=== PATIENT | female | born 1990 | race Caucasian/White ===

== ENCOUNTER 2018-11-12 15:24 | Inpatient (IN) ==
[2018-11-12] MEDS ORDERED: NS 1,000 ML IV ONE ×3 (15:36→20:42)
[2018-11-12] MEDS ORDERED: TYLENOL PO ONE (15:36)
--- NOTE | 2018-11-12 15:37 | PROVIDER DOCUMENTATION ---
HPI-General Adult - General Chief Complaint: Flu Symptoms Stated Complaint: HIGH HEART RATE,FLU LIKE SYMPTOMS,LOW BP,FEVER, Time Seen by Provider: 11/12/18 15:29 Source: patient Allergies/Adverse Reactions: Patient Allergies Allergy/AdvReac Type Severity Reaction Status Date / Time succinylcholine Allergy Severe coma Verified 11/12/18 15:52 [Succinylcholine] Home Medications: Home Medication List Medication Instructions Recorded Confirmed Last Taken Type Levothyroxine [Synthroid] 75 microgm PO DAILY 11/25/17 11/12/18 Unknown History - History of Present Illness -Gen Adult Nature of Presenting Problems: Pt. is 28 yof that presents with c/o fever, cough, and body aches. Pt. recently went to [facility] and was told to come to the ED. Pt. denies any other complaints. Location of Pain/Injury: reports: generalized. denies: none, head, face, mouth, neck, chest, upper extremity, hand(s), abdomen, back, pelvis, genitalia, lower extremity, feet, upper body, lower body, other Pain Radiation: reports: no radiation. denies: arm(s), back, buttocks, chest, epigastric, feet, groin, jaw, flank (L), legs (lower), LLQ, LUQ, neck, periumbilical, flank (R), RLQ, RUQ, shoulder(s), scapula, scrotal, sternal notch, suprapubic, legs (upper), urethral, vaginal, other Quality of Pain: reports: aching. denies: burning, pressure, tightness Severity: reports: moderate. denies: mild, severe Onset/Duration: reports: gradual, 2 days ago Timing: reports: still present. denies: improving, intermittent, getting worse Context/Activities at Onset: reports: none. denies: light activity, moderate activity, vigorous activity, recent emotional stress, recent physical stress, recent trauma history, possible bad food, cold exposure, eating, out of country travel, rest, sleep, sexual activity, other Modifying Factors: improves with: nothing Associated Symptoms: reports: cough, fatigue, fever/chills, malaise, muscle aches. denies: denies symptoms, anxiety, arm pain, back/neck pain, chest pain, constipation, diaphoresis, diarrhea, dizziness, EENT symptoms, genitourinary problems, headaches, heartburn, joint pain, loss of appetite, sinus congestion/drainage, nausea, rash, seizure, shortness of breath, sensory/motor l oss, pain with inspiration, swelling/mass in abdomen, syncope, vomiting, weakness, trouble walking, other Similar Symptoms Previously?: Yes Recently seen or treated by another doctor?: No Review of Systems - Adult - REVIEW OF SYSTEMS - ADULT Constitutional: reports: no symptoms reported Eyes: reports: no symptoms reported Ears, Nose, Mouth & Throat: reports: no symptoms reported Cardiovascular: reports: no symptoms reported Respiratory: reports: see HPI, cough. denies: pleurisy, wheezing Gastrointestinal: reports: no symptoms reported Genitourinary: reports: no symptoms reported Musculoskeletal: reports: see HPI, muscle aches. denies: back pain, joint pain, neck pain Integumentary: reports: no symptoms reported Neurological: reports: no symptoms reported Psychiatric: reports: no symptoms reported Past History - Adult - PAST MEDICAL HISTORY-ADULT Review of Records: reports: Old Records Reviewed, Nursing Assessment Review, Medications Reviewed, Social history reviewed & non-contributory. Major Childhood Illnesses: reports: denies history Cardiovascular: reports: denies history Respiratory: reports: denies history Gastrointestinal: reports: denies history Obstetrical/Gynecological: reports: denies history Genitourinary: reports: denies history Musculoskeletal: reports: denies history Neurological: reports: denies history Endocrine/Immune: reports: denies history Other Conditions: reports: denies history - PRIOR SURGERIES/PROCEDURES Surgical/Procedure History: reports: tonsillectomy - PRIOR HOSPITALIZATIONS Prior Hospitalizations: reports: for other non-related - IMMUNIZATION STATUS Childhood Immunizations: UTD Flu Vaccine: See Nurse Assessment - FAMILY HISTORY Family History: reviewed, not pertinent - SOCIAL HISTORY Smoking: cigarettes, greater than 1 pack/day Provider spent 3-5 mins advising pt. on dangers of tobacco.: Discussed manners to quit use, and f/u contacts for add'l counseling. Physical Exam-General - PHYSICAL EXAM-ADULT Initial Vital Signs Reviewed: Yes - CONSTITUTIONAL General Appearance: alert, mild distress. negative: anxious, obtunded, combative - EYES Eyes: PERRL/EOMI, pink conjunctivae - HEAD, EARS, NOSE, MOUTH & THROAT HENMT: normocephalic/atraumatic, moist mucous membranes - NECK Neck: non-tender, full range of motion, supple, normal inspection - RESPIRATORY Respiratory: lungs clear, normal breath sounds - CARDIOVASCULAR Cardiovascular: regular rate, rhythm, no edema, tachycardia. negative: extra beats, friction rub, irregularly irregular - GASTROINTESTINAL (ABDOMEN) Abdominal Exam: normal bowel sounds, non tender, soft - LYMPHATIC Lymphatic: no adenopathy - MUSCULOSKELETAL Back Exam: normal inspection, no CVA tenderness, no vertebral tenderness Extremity: normal range of motion, non-tender, normal gait, normal inspection Peripheral Pulses: radial (R): 2+, radial (L): 2+ - SKIN Integumentary: normal color, normal turgor, warm/dry - NEUROLOGIC Neurologic: grossly normal, no motor/sensory deficits - PSYCHIATRIC Psych/Mental Status: normal mood/affect, normal thought content, normal thought process, oriented x 3. negative: anxious, paranoid, tearful Progress - PLAN OF CARE/RESULTS Progress/Plan/Lab Results: Vital Signs - 8 hr 11/12/18 15:25 Temperature 102.0 F H Pulse Rate 133 H Respiratory Rate 20 Blood Pressure 87/50 O2 Sat by Pulse Oximetry 98 Orders Category Date Time Status ED: Urine Bedside ORDERED Care 11/12/18 15:29 Active Saline Loc NOW Care 11/12/18 15:29 Active BLOOD CULTURE [BLDCUL] Stat Lab 11/12/18 15:30 Uncollected CBC WITH ELECTRONIC DIFF [HEME] Stat Lab 11/12/18 15:29 Uncollected CK PROFILE [SP CHEM] Stat Lab 11/12/18 15:29 Uncollected COMPREHENSIVE METABOLIC PANEL [CHEM] Stat Lab 11/12/18 15:29 Uncollected LACTATE, PLASMA [CHEM] Stat Lab 11/12/18 15:30 Uncollected URINALYSIS W/POSS RFLX CULT [URINALYSIS] Stat Lab 11/12/18 15:29 Uncollected Laboratory Tests 11/12/18 11/12/18 11/12/18 15:39 15:55 15:55 WBC 8.82 RBC 5.19 Hgb 14.8 Hct 43.8 MCV 84.4 MCH 28.5 MCHC 33.8 RDW Std Deviation 14.5 Plt Count 232 MPV 11.9 H Immature Gran % (Auto) 0.2 Neut % (Auto) 78.2 H Lymph % (Auto) 13.[address] [place] % (Auto) 7.4 Eos % (Auto) 0.2 Baso % (Auto) 0.2 Immature Gran # (Auto) 0.02 Neut # (Auto) 6.89 H Lymph # (Auto) 1.22 [place] # (Auto) 0.65 H Eos # (Auto) 0.02 Baso # (Auto) 0.02 Sodium 135 L Potassium 3.7 Chloride 99 Carbon Dioxide 22 L Anion Gap 14 BUN 7 L Creatinine 0.4 L Estimated GFR/1.73 m2 > 60 BUN/Creatinine Ratio 18 Glucose 98 Calculated Osmolality 268 Calcium 8.5 L Total Bilirubin 0.69 AST 39 H ALT 46 H Alkaline Phosphatase 74 Creatine Kinase 26 Total Protein 6.8 Albumin 4.3 Globulin 2.5 Albumin/Globulin Ratio 1.7 Plasma Lactate 1.1 Urine Source Urine Color Urine Turbidity Urine pH Ur Specific [place] Urine Protein Ur Glucose (Stick) Ur Ketones (Stick) Urine Blood Urine Nitrite Urine Bilirubin Urobilinogen Dipstick Urine Leukocytes Urine WBC (Auto) Urine RBC (Auto) U Epithel Cells (Auto) Urine Bacteria (Auto) Urine Crystals Small Round Cells Urine Casts Urine Yeast-like Cells 11/12/18 16:41 WBC RBC Hgb Hct MCV MCH MCHC RDW Std Deviation Plt Count MPV Immature Gran % (Auto) Neut % (Auto) Lymph % (Auto) [place] % (Auto) Eos % (Auto) Baso % (Auto) Immature Gran # (Auto) Neut # (Auto) Lymph # (Auto) [place] # (Auto) Eos # (Auto) Baso # (Auto) Sodium Potassium Chloride Carbon Dioxide Anion Gap BUN Creatinine Estimated GFR/1.73 m2 BUN/Creatinine Ratio Glucose Calculated Osmolality Calcium Total Bilirubin AST ALT Alkaline Phosphatase Creatine Kinase Total Protein Albumin Globulin Albumin/Globulin Ratio Plasma Lactate Urine Source CLEAN CATCH Urine Color YELLOW Urine Turbidity CLEAR Urine pH 6.5 Ur Specific [place] 1.037 Urine Protein 70 A Ur Glucose (Stick) NEGATIVE Ur Ketones (Stick) >150 Urine Blood NEGATIVE Urine Nitrite NEGATIVE Urine Bilirubin SMALL A Urobilinogen Dipstick 4 A Urine Leukocytes NEGATIVE Urine WBC (Auto) <10 Urine RBC (Auto) <10 U Epithel Cells (Auto) <10 Urine Bacteria (Auto) 2+ Urine Crystals NONE SEEN Small Round Cells Not Reportable Urine Casts Not Reportable Urine Yeast-like Cells Not Reportable Discussed results and plan of care with patient. Patient agrees with plan and verbalizes understanding. Result Diagrams: 11/12/18 15:55 11/12/18 15:55 - XRAY 1 XRAY Study: Chest ([facility] - [address] , [address], [place] [address] [facility] - [address] , [place] [address] Department of Imaging Patient: JACKIE SLAUGHTERADM Date: 11/12/18#: [id number] : 1990ADM Status: REG ERAcct#: [id number] Age/Sex: 28/FRoom/Bed: Loc: ED Ordering Physician: Dianelys Lucas Family Physician: Fer Rivera Reason for Procedure: fever/cough Signed EXAM: CHEST-2 VIEWS - 11/12/2018 HISTORY: fever/cough TECHNIQUE: Chest two views COMPARISON: 10/11/2015 FINDINGS: Heart size is normal. There is consolidation at the left lingula consistent with pneumonia. The remainder of the lungs appear clear. There is no pleural effusion or pneumothorax identified. IMPRESSION: Pneumonia at left lingula. Electronically signed by Chidi Macdonald 11/12/2018 5:23 PM [id number] Interpreting Physician: Chidi Macdonald MD Dictated Date/Time: 11/12/18 172 cc: Dianelys Lucas; Fer Rivera) XRAY Interpretation: See note - CONSULTS/PCP/HOSPITALIST Notification #1 *Consult/PCP/Hospitalist*: Radha John Time Discussed: 18:40 Reason/Comments: Admission Consult Disposition: Will see in ED, Admit Departure - Departure Date of Disposition Decision: 11/12/18 Time of Disposition Decision: 18:27 DIAGNOSIS: Pneumonia Qualifiers: Pneumonia type: due to unspecified organism Laterality: right Lung location: unspecified part of lung Qualified Code(s): J18.9 - Pneumonia, unspecified organism Disposition: ADMITTED INPATIENT 09 Certified Medical Emergency: Emergent Condition: Stable Referrals and Follow-Ups: Fer Rivera [Primary Care Provider] - - Critical Care Note This patient required my direct & personal management of CC.: No Attestation - Physician/ TORRES Attestation Patient care was provided by Advanced Practice Provider:: Yes Advanced Practice Provider:: Dianelys Lucas Advanced Practice Provider documentation review:: The Mid-level provider documentation, treatment plan and medical decision making was reviewed by the physician who agrees with all treatment and medical decision making by the MLP. The physician spent face to face time with patient:: No Advanced Practice Provider documentation review:: Supervising physician onsite and consulted in the evaluation and care of this patient. The physician did not have a face to face encounter with the patient.
[2018-11-12] MEDS ORDERED: NS 1,000 ML ONE (15:45)
[2018-11-12 16:20] LABS: BASO# 0.02 X1000 (0.0-0.2); BASO% 0.2 % (0.0-0.8); EOS# 0.02 X1000 (0.0-0.7); EOS% 0.2 % (0.0-10.0); HEMATOCRIT 43.8 % (37.0-47.0); HEMOGLOBIN 14.8 g/dL (12.0-16.0); IMM GRAN# 0.02 X1000 (0.0-0.04); IMM GRAN% 0.2 % (0.0-0.5); LYMPH# 1.22 X1000 (1.2-3.4); LYMPH% 13.8 % (20.5-51.1); MCH 28.5 PG (27-31); MCHC 33.8 g/dL (33-37); MCV 84.4 FL (81-99); MONO# 0.65 X1000 (0.11-0.59); MONO% 7.4 % (1.7-9.3); MPV 11.9 FL (7.4-10.4); NEUT# 6.89 X1000 (1.4-6.5); NEUT% 78.2 % (42.2-75.2); PLT 232 X1000 (130-400); RBC 5.19 XMIL (4.2-5.4); RDW 14.5 % (11.5-14.5); WBC 8.82 X1000 (4.8-10.8)
[2018-11-12 16:31] LABS: AGAP 14; ALB/GLOB RATIO 1.7; ALBUMIN 4.3 g/dL (3.5-5.0); ALKALINE PHOSPHATASE 74 U/L (32-104); BUN 7 mg/dL (8-22); CALCIUM 8.5 mg/dL (8.8-10.2); CHLORIDE 99 mmol/L (98-107); CK PROFILE 26 U/L (24-173); COSMO 268; CREATININE 0.4 mg/dL (0.5-0.9); ESTIMATED GFR > 60; GLUCOSE 98 mg/dL (70-104); GOT 39 U/L (10-30); GPT 46 U/L (10-36); POTASSIUM 3.7 mmol/L (3.5-5.1); SODIUM 135 mmol/L (136-145); TCO2 22 mmol/L (25-35); TOTAL BILIRUBIN 0.69 mg/dL (0.20-1.00); TOTAL PROTEIN 6.8 g/dL (6.3-8.3)
[2018-11-12 17:13] LABS: URINE SOURCE CLEAN CATCH
[2018-11-12 17:19] LABS: BILIRUBIN URINE SMALL (NEGATIVE); COLOR YELLOW; GLUCOSE URINE NEGATIVE (NEGATIVE); KETONE URINE >150 mg/dL (NEGATIVE); TURBIDITY URINE CLEAR (CLEAR)
[2018-11-12 17:20] LABS: BLOOD URINE NEGATIVE (NEGATIVE); LEUKOCYTES URINE NEGATIVE (NEGATIVE); NITRITE URINE NEGATIVE (NEGATIVE); PH URINE 6.5; PROTEIN URINE 70 mg/dL (NEGATIVE); SP GRAVITY URINE 1.037; UROBILINOGEN URINE 4 mg/dL (NORMAL)
--- NOTE | 2018-11-12 17:26 | Diag Imaging Result Doc PS360 ---
EXAM: CHEST-2 VIEWS - 11/12/2018 HISTORY: fever/cough TECHNIQUE: Chest two views COMPARISON: 10/11/2015 FINDINGS: Heart size is normal. There is consolidation at the left lingula consistent with pneumonia. The remainder of the lungs appear clear. There is no pleural effusion or pneumothorax identified. IMPRESSION: Pneumonia at left lingula. Electronically signed by Chidi Macdonald 11/12/2018 5:23 PM
[2018-11-12 17:37] LABS: UR EPITHELIAL CELLS <10 /HPF (<10); URINE BACTERIA 2+ /HPF; URINE CRYSTALS NONE SEEN; URINE RBC <10 /HPF (<10); URINE WBC <10 /HPF (<10)
[2018-11-12] MEDS ORDERED: ROCEPHIN 1 GM in NS 50 ML IV ONE (17:37)
[2018-11-12] MEDS ORDERED: ZITHROMAX 500 MG/NS 500 MG/250 ML IVPB IV ONE (17:37)
[2018-11-12] MEDS ORDERED: MOTRIN PO ONE (17:41)
[2018-11-12] MEDS ORDERED: DUONEB (A & A) INH ONE (17:41)
[2018-11-12 20:18] LABS: FREE T4 0.99 ng/dL (0.93-1.70); TSH 0.34 uIUmL (0.27-4.20)
--- NOTE | 2018-11-12 20:18 | HISTORY AND PHYSICAL ---
ADDENDUM: Ms. Marilu Mandel is a 28-year-old woman with past medical history of Darline thyroiditis who a week ago had a bout of what she described as a stomach bug, which manifested as persistent nausea, vomiting and diarrhea. She said this only lasted 24 hours, and she got back to her usual state of health and went about her daily activities without any hindrance. Today she comes in complaining of generalized weakness and body aches and cough and went to [facility] in [place] where they did her blood work and found that everything was within normal limits, but they did notice her blood pressure was in the 80s, her heart rate was in the 120s and she had a fever of 104 and referred her to the ER. The patient denies any neck stiffness, genitourinary complaints, GI complaints. Only complains of a cough with minimal shortness of breath. LAB WORK: Reviewed by me showed CBC was essentially normal, but she had 78% neutrophils. Chemistry showed mildly elevated AST and ALT 39 and 46, a sodium of 135. Lactate was normal. Urinalysis shows a lot of ketones, small protein, 2+ bacteria. IMAGING: Chest film to me showed small inspiratory effort. I cannot see any overt infiltrate. PHYSICAL EXAMINATION: VITAL SIGNS: Blood pressure was 85/60. Heart rate was 112. Temperature at current of 97.8, 94% on room air. RESPIRATORY: Exam was only notable for a few questionable basal crepitations. ABDOMINAL EXAM: Normal. CARDIOVASCULAR EXAM: Essentially normal. EXTREMITIES: Good volume pulse. SKIN: No good skin turgor. IMPRESSION: This patient may have a respiratory viral illness. Flu swab was negative at the urgent care and may want to consider other viral illnesses like metapneumovirus and rhinovirus. For now, we will treat patient symptomatically. I will order noncontrast CT to rule out possibility of pneumonia based on her presentation and her chest findings. If positive, we will treat with antibiotics. If negative, we will continue with symptomatic treatment and because of her history of Darline's thyroiditis, one also needs to consider the possibility of hashitoxicosis. I will get a TSH and a free T4. The patient did tell me that she did feel extremely hot the last few days. Denies any tremors. cc: Scarlet John MD
--- NOTE | 2018-11-12 20:34 | Diag Imaging Result Doc PS360 ---
EXAM: CT THORAX W/O CONTRAST - 11/12/2018 HISTORY: Fever,cough,hypotension,poss. PNA TECHNIQUE: CT thorax without contrast. No contrast administered per request of the referring provider. COMPARISON: 11/12/2018 chest radiographs FINDINGS: There is consolidation at the left upper lobe, primarily at the lingular segment, consistent with pneumonia. There are left lower lobe calcified granuloma and calcified left hilar lymph nodes from old granulomatous disease. The remainder of the lungs appear clear. There is no pleural effusion or pneumothorax identified. There are mildly enlarged noncalcified mediastinal lymph nodes which may be reactive. Included sections of upper abdomen show postsurgical changes of gastric bypass. The visualized spleen is mildly prominent. IMPRESSION: Left upper lobe pneumonia. This exam was performed using automated exposure control, adjustment of mA or kV according to patient size, and/or use of iterative reconstruction technique. Electronically signed by Chidi Macdonald 11/12/2018 8:32 PM
[2018-11-12] MEDS: DUONEB (A & A) INH SCH (22:33)
[2018-11-12] MEDS ORDERED: HALL'S COUGH LOZENGE MT PRN (22:45)
[2018-11-12] MEDS ORDERED: TESSALON PO PRN (22:45)
[2018-11-13] MEDS: ZITHROMAX 500 MG/NS 500 MG/250 ML IVPB IV SCH ×2 (00:11→22:07)
[2018-11-13] MEDS: ZOFRAN IV PRN ×2 (03:27→18:43)
[2018-11-13] MEDS: DUONEB (A & A) INH SCH ×4 (03:29→21:06)
[2018-11-13] MEDS: TYLENOL PO PRN ×4 (04:05→22:06)
--- NOTE | 2018-11-13 04:34 | EKG Report ---
Test Performed on : 11/13/2018 03:58:52 AM Test Reason : tachycardia/pain Blood Pressure : / mmHG Vent. Rate : 112 BPM Atrial Rate : 112 BPM P-R Int : 170 ms QRS Dur : 084 ms QT Int : 326 ms P-R-T Axes : 038 052 016 degrees QTc Int : 444 ms Sinus tachycardia. Otherwise normal ECG When compared with ECG of 25-JUL-2012 19:25, Vent. rate has increased BY 43 BPM QRS axis shifted left Non-specific change in ST segment in Anterior leads Nonspecific T wave abnormality now evident in Inferior leads Nonspecific T wave abnormality now evident in Anterior leads T wave inversion no longer evident in Lateral leads Unconfirmed Result
[2018-11-13 05:20] LABS: BASO# 0.01 X1000 (0.0-0.2); BASO% 0.2 % (0.0-0.8); EOS# 0.03 X1000 (0.0-0.7); EOS% 0.5 % (0.0-10.0); HEMATOCRIT 36.7 % (37.0-47.0); HEMOGLOBIN 12.3 g/dL (12.0-16.0); IMM GRAN# 0.02 X1000 (0.0-0.04); IMM GRAN% 0.3 % (0.0-0.5); LYMPH% 18.5 % (20.5-51.1); MCH 28.6 PG (27-31); MCHC 33.5 g/dL (33-37); MCV 85.3 FL (81-99); MONO# 0.79 X1000 (0.11-0.59); MONO% 12.2 % (1.7-9.3); MPV 11.2 FL (7.4-10.4); NEUT# 4.42 X1000 (1.4-6.5); NEUT% 68.3 % (42.2-75.2); PLT 183 X1000 (130-400); RDW 14.7 % (11.5-14.5); WBC 6.47 X1000 (4.8-10.8)
[2018-11-13 05:43] LABS: AGAP 11; ALB/GLOB RATIO 1.6; ALBUMIN 3.2 g/dL (3.5-5.0); ALKALINE PHOSPHATASE 60 U/L (32-104); BUN 5 mg/dL (8-22); CALCIUM 7.6 mg/dL (8.8-10.2); CHLORIDE 109 mmol/L (98-107); COSMO 276; CREATININE 0.4 mg/dL (0.5-0.9); ESTIMATED GFR > 60; GLUCOSE 112 mg/dL (70-104); GOT 26 U/L (10-30); GPT 34 U/L (10-36); POTASSIUM 3.3 mmol/L (3.5-5.1); SODIUM 139 mmol/L (136-145); TCO2 19 mmol/L (25-35); TOTAL BILIRUBIN 0.32 mg/dL (0.20-1.00); TOTAL PROTEIN 5.2 g/dL (6.3-8.3)
[2018-11-13] MEDS: NS 1,000 ML IV SCH ×2 (07:36→11:41)
--- NOTE | 2018-11-13 09:58 | HISTORY AND PHYSICAL ---
PRIMARY CARE PROVIDER: Dr. Fer Rivera. DATE AND TIME: 11/12/2018 at 1945. CHIEF COMPLAINT: Flu symptoms. HISTORY OF PRESENT ILLNESS: Ms. Mandel is a 28-year-old female with a past medical history of Darline's thyroiditis. She states that approximately 1 week ago that she did have a 24 hour stomach virus where she had nausea, vomiting and diarrhea. The patient states that this has since resolved. Other than having some occasional nausea, her vomiting and diarrhea have resolved. The patient states that she does frequently have nausea. She states that on Friday she did go outside to mow her grass. She states that later on that evening after she came in she began to not feel well, and since Friday, which is approximately 3 days ago she has had complaints of rhinorrhea, sinus drainage, dry cough, fever, body aches, and chills. The patient states that she is not short of breath and can exert herself without becoming short of breath. She states at times she feels as though she "can't catch her breath". Though, she denies any dizziness or feeling lightheaded. She does report that she has a headache. She denies any chest pain, abdominal pain, vomiting, or diarrhea. She denies any dysuria or urinary frequency. She also denies any pain, numbness, tingling or swelling in her extremities. She reports that earlier today she was seen in Urgent Care, and due to her vital signs being abnormal with her temperature being elevated and blood pressure being low with systolics in the 80s, she was referred to come to the ER for further evaluation. They did do an influenza screen which was negative there. Upon arrival here in the ER, initial vital signs were temperature 102 degrees, heart rate 133, respirations 20, blood pressure was 87/50 with a MAP of 63. Oxygen saturation was 98% on room air. Her fever was treated with Tylenol and Motrin. She was given 2 L normal saline bolus. Chest x-ray did show pneumonia at the left lingula. Given these findings, I did go ahead and initiate antibiotic treatment with Rocephin and azithromycin. After the 2 L normal saline bolus, the patient is still borderline hypotensive with blood pressures that are still in the 80s systolically. Her maps are in the low-to-mid 60s range. She still is slightly tachycardic as well with heart rate around 115. She was placed for admission for observation for treatment of her pneumonia. We also did perform thyroid studies which were within normal limits. Her influenza screen was negative, and we did do a CT noncontrast which did show a left upper lobe pneumonia. REVIEW OF SYSTEMS: A 14 point review of systems was conducted with the patient. All were negative except for pertinent positives mentioned above in HPI. PAST MEDICAL HISTORY: 1. Darline's thyroiditis. 2. History of a concussion at age 8 which did reportedly caused her to have some temporary paralysis after being struck in the head with a softball. PAST SURGICAL HISTORY: 1. section. 2. Tonsillectomy. 3. Gastric sleeve. SOCIAL HISTORY: The patient is a former smoker. She did smoke 1/3 pack per day for 10 years, though quit 5 years ago. She only reports occasional alcohol use. There is no known illicit drug use. FAMILY HISTORY: Positive for her father having history of alcoholism and did develop dementia, and secondary to complications of this. There is no other reported known family medical history. ALLERGIES: The patient reports allergies to succinylcholine. She does state there is a history of malignant hypertension as well. HOME MEDICATIONS: Levothyroxine 88 mcg p.o. daily. DIAGNOSTIC DATA/LABORATORY RESULTS: White blood cell count is 8820, hemoglobin 14.8, hematocrit 43.8, and platelet count is 232,000. Sodium 135, potassium 3.7, chloride 99, serum bicarb is 22, BUN 7, creatinine 0.4, glucose 98, calcium 8.5, total bilirubin is 0.69, AST is 39, ALT is 46, alkaline phosphatase 74. TSH is 0.34, free T4 is 0.99. Urinalysis was obtained via clean catch, was positive for protein, small amount of bilirubin, greater than 150 ketones, and 2+ bacteria though was negative for blood, nitrites, leukocytes, or white blood cells. Influenza screen was negative. Chest x-ray showed pneumonia at the left lingula. CT chest noncontrast showed left upper lobe pneumonia. Pending diagnostic studies at this time are blood culture, sputum culture, and urine culture. PHYSICAL EXAMINATION: VITAL SIGNS: Temperature 98.7 degrees, heart rate 115, respirations 20, and blood pressure is 91/56 with a MAP of 74. Oxygen saturation is 98%. GENERAL: Ms. Mandel is a pleasant 28-year-old female. She was resting on the ER stretcher. She was in no acute distress. She was awake, alert, and able to answer all questions appropriately. HEENT: Head is atraumatic, normocephalic. Pupils are equal, round, reactive to light, and were 3 mm bilaterally and brisk. Oral mucosa was moist. Oropharynx was clear except for there was some slight drainage noted to the posterior pharynx. NECK: Supple. Trachea midline. CARDIOVASCULAR: Patient has S1-S2 present. No murmurs, gallops, or rubs appreciated with a slightly tachycardic rate and regular rhythm. PULMONARY: Patient has symmetrical chest expansion bilaterally. Lung sounds are clear to auscultation in bilateral full martinez. ABDOMEN: Soft, non distended, and nontender. Bowel sounds are present in all 4 quadrants, and were normoactive. EXTREMITIES: No cyanosis or edema noted. Pulse, motor, and sensory were intact in all extremities. Radial and pedal pulses were 2+ bilaterally. INTEGUMENTARY: The patient's skin is pink, warm, and dry. NEUROLOGICAL: Patient is alert and oriented to person, place, time, and situation. There are no focal neurological deficits noted. ASSESSMENT AND PLAN: 1. Community-acquired left upper lobe pneumonia. The patient has been placed with antibiotic coverage of Rocephin and azithromycin. Blood cultures and sputum culture have been ordered. We will continue with aggressive pulmonary toilet, incentive spirometry, DuoNeb treatments, and something as needed for cough. 2. Mild hypotension, this could possibly be secondary to mild fluid volume depletion. The patient did report that though she has been eating, she has not been drinking a lot of fluids over the past couple of days. She stated it was less than her normal amount. Though with 2 L normal saline bolus, her blood pressures have improved. She was in the 80s systolically, and now she is in the 90s. We will continue with normal saline at 125 mL/h. We will continue to monitor this closely with q.4 hours vital signs. She will be placed on continuous cardiac telemetry. 3. Fluid volume depletion. We will continue with IV hydration as mentioned above in #2. 4. Darline's thyroiditis. TSH and free T4 are within normal limits. We will continue her regularly prescribed Synthroid of 88 mcg p.o. daily. She has been placed on the medical floor with telemetry. She will have vital signs q.4 hours. We will do strict intake and output. I would like to add that her bedside urine in he ER was negative. We will repeat a CBC, BMP in the morning. Further orders and recommendations pending hospital course, diagnostic studies, and physician evaluation. Dictated by DOMI Lehman for Scarlet John MD cc: Scarlet John MD MTDD
[2018-11-13] MEDS ORDERED: ROCEPHIN ONE (10:36)
[2018-11-13] MEDS ORDERED: SYNTHROID PO ONE (11:11)
[2018-11-13] MEDS: ULTRAM PO PRN ×2 (11:40→18:09)
[2018-11-13] MEDS ORDERED: ROCEPHIN 1 GM in NS 50 ML IV SCH (18:00)
[2018-11-13] MEDS ORDERED: MORPHINE IV ONE (18:47)
[2018-11-13] MEDS: MOTRIN PO PRN (18:58)
--- NOTE | 2018-11-13 19:29 | PROGRESS NOTE ---
DATE: 11/13/2018 SUBJECTIVE: The patient denies having any acute complaints this morning, and is comfortably sitting in her bed. OBJECTIVE: Vital Signs: Temperature 98.7 degrees, pulse 103 per minute, respiratory rate 18 per minute. Blood pressure 107/57, pulse oximetry 100% on room air. General: Patient is alert and oriented x3. She does not appear to be in any acute distress. Cardiovascular System: First and second heart sounds are audible without any murmurs or gallops. Respiratory System: Bilateral lung air entry is good without any rales or rhonchi. Gastrointestinal System: Abdomen is soft and nondistended. Normal bowel sounds are present. Musculoskeletal System: No deformities are present. DIAGNOSTIC DATA: CBC is within normal limits and comprehensive metabolic panel showed potassium level of 3.3. Rest of the comprehensive metabolic panel is nondiagnostic. Cardiac enzymes were found to be negative and chest x-ray done yesterday at the emergency room showed pneumonia at left lingula. CT chest was also obtained that confirmed left upper lobe pneumonia. IMPRESSION: Left upper lobe pneumonia in this 28-year-old female who also has history of hypothyroidism. PLAN: The patient will be continued on ceftriaxone along with azithromycin for community-acquired pneumonia. I have restarted her home medication of levothyroxine 88 mcg orally once daily. She can probably be able to be discharged home in the next 1 to 2 days if remains stable. cc: Chema Valencia MD
[2018-11-14] MEDS: DUONEB (A & A) INH SCH ×4 (03:25→21:16)
[2018-11-14] MEDS: SYNTHROID PO SCH (06:37)
[2018-11-14] MEDS: ULTRAM PO PRN (06:40)
--- NOTE | 2018-11-14 07:29 | Diag Imaging Result Doc PS360 ---
CHEST-PORTABLE - 11/14/2018 INDICATION: Pneumonia COMPARISON: 11/12/2018 FINDINGS: There is significant worsening in density of the lingular consolidation compatible with pneumonia. The right lung remains clear. Heart size remains normal. IMPRESSION: Worsening density of the lingular pneumonia. Electronically signed by Den Sanches 11/14/2018 7:27 AM
[2018-11-14 07:51] LABS: BASO# 0.01 X1000 (0.0-0.2); BASO% 0.2 % (0.0-0.8); EOS# 0.05 X1000 (0.0-0.7); HEMATOCRIT 32.3 % (37.0-47.0); HEMOGLOBIN 10.4 g/dL (12.0-16.0); LYMPH# 1.44 X1000 (1.2-3.4); LYMPH% 28.7 % (20.5-51.1); MCH 27.7 PG (27-31); MCHC 32.2 g/dL (33-37); MCV 86.1 FL (81-99); MONO# 0.72 X1000 (0.11-0.59); MONO% 14.4 % (1.7-9.3); MPV 11.8 FL (7.4-10.4); NEUT# 2.79 X1000 (1.4-6.5); NEUT% 55.7 % (42.2-75.2); PLT 172 X1000 (130-400); RBC 3.75 XMIL (4.2-5.4); RDW 14.4 % (11.5-14.5); WBC 5.01 X1000 (4.8-10.8)
[2018-11-14 08:09] LABS: AGAP 12; ALB/GLOB RATIO 1.2; ALBUMIN 2.9 g/dL (3.5-5.0); ALKALINE PHOSPHATASE 63 U/L (32-104); BUN 2 mg/dL (8-22); CALCIUM 8.1 mg/dL (8.8-10.2); CHLORIDE 107 mmol/L (98-107); COSMO 279; CREATININE 0.3 mg/dL (0.5-0.9); ESTIMATED GFR > 60; GLUCOSE 92 mg/dL (70-104); GOT 18 U/L (10-30); GPT 27 U/L (10-36); POTASSIUM 3.1 mmol/L (3.5-5.1); SODIUM 142 mmol/L (136-145); TCO2 23 mmol/L (25-35); TOTAL BILIRUBIN 0.23 mg/dL (0.20-1.00); TOTAL PROTEIN 5.4 g/dL (6.3-8.3)
[2018-11-14] MEDS ORDERED: KLOR-CON PO ONE (09:57)
[2018-11-14 10:53] LABS: UR AMPHETAMINES QUAL NONE DETECTED (NONE DETECT); UR BARBITUATES QUAL NONE DETECTED (NONE DETECT); UR BENZODIAZEPIN QUAL NONE DETECTED (NONE DETECT); UR CANNABINOIDS QUAL NONE DETECTED (NONE DETECT); UR COCAINE QUAL NONE DETECTED (NONE DETECT); UR METHADONE QUAL NONE DETECTED (NONE DETECT); UR OPIATES QUAL NONE DETECTED (NONE DETECT); UR OXYCODONE QUAL NONE DETECTED (NONE DETECT); UR PCP QUAL NONE DETECTED (NONE DETECT)
[2018-11-14] MEDS: MOTRIN PO PRN (11:00)
[2018-11-14] MEDS: FIORICET PO PRN (12:43)
[2018-11-14] MEDS: MAXIPIME 2 GM in NS 100 ML IV SCH ×2 (13:11→23:31)
[2018-11-14] MEDS: ZYVOX PO SCH (19:59)
--- NOTE | 2018-11-14 22:18 | PROGRESS NOTE ---
DATE: 11/14/2018 SUBJECTIVE: The patient is resting. She does complain of a frontal headache that has been going on for several days. She states the shortness of breath has improved. OBJECTIVE: Vital Signs: Temperature 97.9 degrees, blood pressure 100/59, heart rate 85, respirations 20, O2 saturations 100% on room air. General: This is a young female sitting up in bed in no acute distress. Heart: S1, S2 normal. Regular rate and rhythm. Lungs: Equal air entry bilaterally. No wheezing, no rales. Abdomen: Positive bowel sounds, soft, nontender, nondistended. Extremities: No edema, no cyanosis. Neuro: The patient is alert and oriented x4. LABS: White blood cell count 5, hemoglobin 10, hematocrit 32, platelets 172,000. Sodium 142, potassium 3.1, chloride 107, CO2 23, BUN 2, creatinine 0.3. Chest x-ray shows worsening of the lingular pneumonia. ASSESSMENT AND PLAN: 1. Pneumonia. The blood cultures remain negative and a sputum culture is currently pending. Will continue with broad-spectrum antibiotic coverage, will also consult with ID and check an immunoglobulin level. 2. Headache. Will give the patient a dose of Fioricet and monitor her response. 3. Hypokalemia. Will replace the potassium. 4. Status post gastric sleeve. Aware. 5. Deep vein thrombosis prophylaxis, will start the patient on Lovenox. cc: Lili Alcantar MD
[2018-11-14] MEDS: LOVENOX SUBQ SCH (23:31)
[2018-11-14] MEDS: TYLENOL PO PRN (23:37)
[2018-11-15] MEDS: DUONEB (A & A) INH SCH ×4 (03:42→21:39)
[2018-11-15] MEDS: SYNTHROID PO SCH ×2 (05:05→08:04)
[2018-11-15] MEDS: FIORICET PO PRN (05:05)
[2018-11-15 07:05] LABS: BASO# 0.02 X1000 (0.0-0.2); BASO% 0.6 % (0.0-0.8); EOS# 0.14 X1000 (0.0-0.7); EOS% 4.1 % (0.0-10.0); HEMATOCRIT 34.4 % (37.0-47.0); HEMOGLOBIN 11.1 g/dL (12.0-16.0); LYMPH# 1.87 X1000 (1.2-3.4); LYMPH% 54.4 % (20.5-51.1); MCH 28.3 PG (27-31); MCHC 32.3 g/dL (33-37); MCV 87.8 FL (81-99); MONO# 0.46 X1000 (0.11-0.59); MONO% 13.4 % (1.7-9.3); MPV 11.6 FL (7.4-10.4); NEUT# 0.95 X1000 (1.4-6.5); NEUT% 27.5 % (42.2-75.2); PLT 207 X1000 (130-400); RBC 3.92 XMIL (4.2-5.4); RDW 14.8 % (11.5-14.5); WBC 3.44 X1000 (4.8-10.8)
[2018-11-15 07:09] LABS: AGAP 11; BUN 3 mg/dL (8-22); CALCIUM 8.7 mg/dL (8.8-10.2); CHLORIDE 107 mmol/L (98-107); COSMO 279; CREATININE 0.3 mg/dL (0.5-0.9); ESTIMATED GFR > 60; GLUCOSE 93 mg/dL (70-104); POTASSIUM 3.3 mmol/L (3.5-5.1); SODIUM 142 mmol/L (136-145); TCO2 24 mmol/L (25-35)
[2018-11-15 07:38] LABS: PHOSPHORUS 3.9 mg/dL (2.7-4.5)
[2018-11-15] MEDS ORDERED: POTASSIUM CHLORIDE 20% LIQUID PO ONE (07:50)
[2018-11-15] MEDS: ZYVOX PO SCH ×2 (09:22→21:15)
[2018-11-15] MEDS: MAXIPIME 2 GM in NS 100 ML IV SCH ×2 (12:39→23:40)
--- NOTE | 2018-11-15 18:04 | INFECTIOUS DISEASE CONSULT REP ---
DATE: 11/15/2018 CONCLUSION: The patient is admitted to the hospital. She has a worsening lingular consolidation on her chest x-ray. Patient also has immunoglobulin deficiency, specifically her IgG is 580, her IgA is normal at 122. 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 It is uncertain to me whether she has an immunoglobulin deficiency and that caused her to get pneumonia or she got pneumonia and that caused her body to make less IgG. It is also of note that the patient said that when she was sick 3 years ago after cutting the lawn she was told she had a mycoplasma infection. RECOMMENDATIONS: I agree with switching the patient from Rocephin and azithromycin to Zyvox and cefepime. I am going to repeat her chest x-ray tomorrow morning and if it still shows worsening, I am going to give her a dose of IVIG. DISCUSSION: The patient approximately 5 days ago started having fever and chills. She became hypotensive. She had generalized body aching. She was coughing and she was dyspneic. This started after she cut the lawn. It should be noted that 3 years ago the patient developed a cough after cutting a lawn, although she said the cough she had 3 years ago was not nearly as severe as the one that she is in the hospital with now. The patient's CBC shows a white count of 3440, hemoglobin 11.1, and platelet count of 207,000. Creatinine is 0.3. GFR is greater than 60. Urinalysis shows bacteria but no white cells. Drug screen is negative. IgG is 580, IgA is 122. test is negative. Sputum is growing normal demario. Urine cultures negative and swab for influenza is negative. The patient's blood cultures show no growth after 48 hours. PAST MEDICAL HISTORY/REVIEW OF SYSTEMS: Eyes and ears: She has normal hearing and seeing. Neck: No stiffness. Respiratory: See present illness. Cardiac: No chest pain or palpitations. GI: No nausea, vomiting, or diarrhea. : No dysuria or flank pain. Bones, joints and muscles: No joint swelling and the patient did have generalized body aching, but she did not say specifically it was just in the muscle. Neurologic: No seizures. No loss of motor or sensory function. Integument: No rash. SLURRY MAN HISTORY: She is a 2, para 2, AB 0. Her test is negative. PREVIOUS HOSPITALIZATIONS AND OPERATIONS: She has had a vertical sleeve operation and a tonsillectomy. MEDICAL DISEASES: Positive for obesity which is the reason she had her vertical sleeve surgery as mentioned above. The patient also has Darline thyroiditis. INFECTIOUS DISEASE HISTORY: Positive for UTI 3 years ago. The patient said that she was told she had a mycoplasma infection. FAMILY HISTORY: Positive for diabetes mellitus, cancer, myocardial infarction and alcoholism. SOCIAL HISTORY[place] . She has a dog as a pet. She does not have any allergies. Her only medicine she takes is Synthroid. She does not smoke cigarettes, drink alcoholic beverages or abuse drugs. 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 PHYSICAL EXAMINATION: Temperature is 98.6 degrees, pulse 86, respirations 20, blood pressure 110/61. The patient is 5 feet 7 inches tall, weighs 206 pounds.General: This is an obese, young female. She does cough occasionally. She does not bring up any sputum. She does not appear to be in any acute distress. Head, eyes, ears, nose and throat: She can hear my spoken words and see near objects. There is no drainage from the nose or ears. Neck: No meningismus. Lungs: Clear to auscultation. Cardiovascular: Regular heart rate. Abdomen: Soft and nontender. Neurologic: The patient is alert. She is able to ambulate. There is no tremor. Her sensation is intact to touch. Her memory as regarding her medical history is intact. Integument: No rash noted. Thank you for the consult. cc: Mack Garcia MD
--- NOTE | 2018-11-15 19:07 | PROGRESS NOTE ---
DATE: 11/15/2018 SUBJECTIVE: The patient states that she has been having intermittent headaches that are relieved by Fioricet. OBJECTIVE: Vital Signs: Temperature 98.1 degrees, blood pressure 118/66, heart rate 99, respirations 20, O2 saturation is 100% on room air. General: This is a young female, sitting in bed in no acute distress. Heart: S1, S2 normal, regular rate and rhythm. Lungs: Clear to auscultation bilaterally. No wheezing. No rales. No rhonchi. Abdomen: Positive bowel sounds. Soft, nontender, nondistended. Extremities: No edema, no cyanosis. Neurologic: The patient is alert and oriented x4. LABORATORY DATA: Sodium 142, potassium 3.3, chloride 107, CO2 of 24, BUN 3, creatinine 0.3, glucose 93. White blood cell count 3.4, hemoglobin 11, hematocrit 34 platelets 207,000. ASSESSMENT AND PLAN: 1. Pneumonia. Continue with the current antibiotic regimen. Dr. Garcia is following. 2. Immunoglobulin deficiency. Aware. 3. Headache. Continue with p.r.n. Fioricet. 4. Status post gastric sleeve. Aware. 5. Hypokalemia. We will replace the patient's potassium. 6. Deep vein thrombosis prophylaxis. We will start the patient on Lovenox. cc: Lili Alcantar MD
[2018-11-15] MEDS: LOVENOX SUBQ SCH (21:15)
[2018-11-16] MEDS: DUONEB (A & A) INH SCH ×4 (03:42→21:48)
[2018-11-16] MEDS: FIORICET PO PRN ×3 (05:27→12:44)
[2018-11-16 06:12] LABS: HEMATOCRIT 35.6 % (37.0-47.0); HEMOGLOBIN 11.6 g/dL (12.0-16.0); MCH 27.8 PG (27-31); MCHC 32.6 g/dL (33-37); MCV 85.2 FL (81-99); MPV 11.1 FL (7.4-10.4); RBC 4.18 XMIL (4.2-5.4); RDW 14.5 % (11.5-14.5); WBC 4.43 X1000 (4.8-10.8)
[2018-11-16] MEDS: SYNTHROID PO SCH (06:16)
[2018-11-16 06:46] LABS: AGAP 12; BUN 6 mg/dL (8-22); CALCIUM 8.6 mg/dL (8.8-10.2); CHLORIDE 105 mmol/L (98-107); COSMO 279; CREATININE 0.4 mg/dL (0.5-0.9); ESTIMATED GFR > 60; GLUCOSE 94 mg/dL (70-104); POTASSIUM 3.3 mmol/L (3.5-5.1); SODIUM 141 mmol/L (136-145); TCO2 24 mmol/L (25-35)
--- NOTE | 2018-11-16 06:46 | Diag Imaging Result Doc PS360 ---
CHEST-1 VIEW - 11/16/2018 INDICATION: pneumonia COMPARISON: 11/14/2018 FINDINGS: There is no change in the dense consolidation in the left lung base. This is mainly in the lingula. No new infiltrates. Heart size and pulmonary vascularity remain normal. IMPRESSION: Dense lingular pneumonia. Electronically signed by Den Sanches 11/16/2018 6:44 AM
[2018-11-16] MEDS ORDERED: KLOR-CON PO ONE (07:07)
[2018-11-16] MEDS: ZYVOX PO SCH ×2 (09:03→20:35)
[2018-11-16] MEDS: ZOFRAN IV PRN (09:34)
--- NOTE | 2018-11-16 10:49 | PROGRESS NOTE ---
DATE: 11/16/2018 SUBJECTIVE: The patient is sitting up in bed. She states that she feels a lot better today. She states that her breathing has improved. OBJECTIVE: Vital Signs: Temperature 98 degrees, blood pressure 102/54, heart rate 87, respirations 20, O2 saturation 98% on room air. Intake 1 L, output 1.5 L. General: This is a young female, sitting in bed in no acute distress. Heart: S1, S2 normal. Regular rate and rhythm. Lungs: Equal air entry bilaterally. No wheezing. No rales. No rhonchi. Abdomen: Positive bowel sounds. Soft, nontender, nondistended. Extremities: No edema. No cyanosis. Neurologic: The patient is alert and oriented x3. LABORATORY DATA: White blood cell count 4.4, hemoglobin 11, hematocrit 35, platelets 257,000. Sodium 141, potassium 3.3, chloride 105, CO2 of 24, BUN 6, creatinine 0.4, glucose 94. ASSESSMENT AND PLAN: 1. Lingular pneumonia. Continue with the current antibiotic regimen as directed by Dr. Garcia. 2. Hypokalemia. Will replace the patient's potassium. 3. Status post gastric sleeve. Aware. 4. Hypothyroidism. Continue on Synthroid. 5. Deep vein thrombosis prophylaxis. Continue on Lovenox. cc: Lili Alcantar MD
[2018-11-16] MEDS: MAXIPIME 2 GM in NS 100 ML IV SCH ×2 (12:44→23:54)
[2018-11-16] MEDS ORDERED: DILUENT IV ONE (16:00)
[2018-11-16] MEDS ORDERED: GAMUNEX-C 10% IV ONE (16:00)
[2018-11-16] MEDS ORDERED: GAMUNEX C IV ONE (16:00)
[2018-11-16] MEDS: LOVENOX SUBQ SCH (20:36)
--- NOTE | 2018-11-16 21:27 | INFECTIOUS DISEASE PROGRESS NO ---
DATE: 11/16/2018 PRESENT ILLNESS: Ms. Mandel has a left upper lobe pneumonia as well as an immunoglobulin deficiency with a low IgG. MEDICATIONS: She is on day 2 of cefepime 2 g IV every 12 hours. Zyvox 600 mg by mouth every 12 hours. PHYSICAL EXAMINATION: Vital Signs: Temperature is 98.2 degrees, pulse rate 87, respiratory rate 20, blood pressure 88/54, O2 saturation is 100% on room air. General: This is a fairly healthy appearing, middle-aged female. She is sitting up in the bed, currently in no acute distress. HEENT: Atraumatic, normocephalic. Oral mucous membranes are pink and moist. Conjunctivae are pink. Neck: Supple. Trachea is midline. Cardiovascular: Heart rate and rhythm are regular. Normal sinus rhythm on the monitor. Respiratory: Lung sounds are clear to auscultation bilaterally. No work of breathing is noted. Abdomen: Soft, round, and nontender. Bowel sounds are active. Neurologic: She is awake, alert, oriented, able to ambulate without assistance. LABORATORY AND X-RAY: Her immunoglobulin levels show an IgA of 122 and IgG of 580. Her white blood cell count today is 4.43, hemoglobin 11.6, platelet count 257,000. Creatinine is 0.4. Estimated GFR is greater than 60. The sputum culture has a preliminary report of normal demario. There are gram-negative rods and gram-positive cocci in the Gram stain. Blood cultures have shown no growth, and no growth on the urine culture. Chest x-ray today shows dense lingular pneumonia with no new infiltrates. ASSESSMENT AND PLAN: Ms. Mandel is receiving Zyvox and cefepime for her left- sided pneumonia. This is noted to be about the same as yesterday on the chest x-ray. For now, we will continue her medications as ordered. She also has an immunoglobulin deficiency with an IgG of 580, so we will go ahead and administer IVIG 20 g x1 dose today. We are awaiting the final results of her sputum culture. We will also get a chest x-ray tomorrow morning. Hopefully, if her chest x-ray looks better, we can send her home on something by mouth. We will plan to see her back in the office and will also recheck her immunoglobulins in 6 to 8 weeks. It is possible that this is a chronic problem for her due to her history of previous issues with pneumonia and sinusitis. These plans have been discussed with and recommended by Dr. Garcia. COMORBIDITIES: for the patient include previous pneumonia and multiple issues with sinusitis and immunoglobulin deficiency. Dictated by DOMI Henderson for Mack Garcia MD cc: Makc Garcia MD MTD
[2018-11-17] MEDS: LOVENOX SUBQ SCH (03:12)
[2018-11-17] MEDS: DUONEB (A & A) INH SCH ×3 (03:29→15:33)
[2018-11-17] MEDS: SYNTHROID PO SCH (06:20)
[2018-11-17 06:47] LABS: HEMATOCRIT 38.7 % (37.0-47.0); HEMOGLOBIN 12.5 g/dL (12.0-16.0); MCH 28.2 PG (27-31); MCHC 32.3 g/dL (33-37); MCV 87.4 FL (81-99); MPV 11.2 FL (7.4-10.4); RBC 4.43 XMIL (4.2-5.4); RDW 14.8 % (11.5-14.5); WBC 4.79 X1000 (4.8-10.8)
[2018-11-17 08:06] LABS: AGAP 14; CHLORIDE 105 mmol/L (98-107); SODIUM 142 mmol/L (136-145); TCO2 23 mmol/L (25-35)
[2018-11-17 08:07] LABS: BUN 7 mg/dL (8-22); COSMO 280; CREATININE 0.5 mg/dL (0.5-0.9); ESTIMATED GFR > 60; GLUCOSE 81 mg/dL (70-104)
[2018-11-17 08:16] LABS: POTASSIUM 4.5 mmol/L (3.5-5.1)
--- NOTE | 2018-11-17 08:33 | Diag Imaging Result Doc PS360 ---
EXAM: CHEST-2 VIEWS 11/17/2018 HISTORY: pneumonia TECHNIQUE: PA and lateral chest COMMENT: There is ill-defined opacity in the lingula partially obscuring the left heart border. This was also present on 11/16/2018 and 11/14/2018. Compared to 11/14/2018 this has improved slightly. There may be a small amount of pleural fluid on the left. IMPRESSION: Improving lingular pneumonia. Electronically signed by Morris Nichole 11/17/2018 8:30 AM
[2018-11-17] MEDS: FIORICET PO PRN (08:36)
[2018-11-17] MEDS: ZYVOX PO SCH (08:37)
--- NOTE | 2018-11-17 09:51 | PROGRESS NOTE ---
DATE: 11/17/2018 SUBJECTIVE: This is a 28-year-old who presented with past medical history of Darline's thyroiditis a week ago for admission. She had a stomach bug, persistent nausea, vomiting and diarrhea that lasted 24 hours, and she was back to her usual state of health and daily activities without hindrance. She then came in on 11/12/2018 with generalized weakness, body aches and cough and went to [facility] in [place] where they did blood and found that everything was within normal limits, but they did notice blood pressure was in the 80s, heart rate 120, fever of 104. The patient was admitted with what was thought to be a respiratory viral illness. Flu swab was negative. She was found to have a left upper lobe pneumonia as well as immunoglobulin deficiency, low IgG. She is on cefepime and Zyvox. She does feel better. She is hoping she gets to go home today. OBJECTIVE: Temperature 98.5, pulse 86, respirations 20, blood pressure 95/57. Pupils are equal and round. Lungs are clear in all lung martinez. Cardiovascular exam: Regular rhythm and rate without murmur or S3. Abdomen is soft. Skin is warm and dry. Chest x-ray done this morning I have not seen yet to compare to, but the one yesterday shows a dense lingular pneumonia. She is hoping to go home. We will see what her x-ray shows and talk to Dr. Garcia, review of her orders. She is on Zyvox 600 mg p.o. q 12 and cefepime 2 grams IV q 12. She got 20 grams of immunoglobulin, and I think that was yesterday. cc: Lance Fernandez MD
[2018-11-17] MEDS: MAXIPIME 2 GM in NS 100 ML IV SCH (13:57)
[2018-11-17 16:59] VITALS: BP 102/54
--- NOTE | 2018-11-17 17:31 | DISCHARGE SUMMARY ---
ADMISSION DATE: 11/12/2018 DISCHARGE DATE: 11/17/2018 PRIMARY CARE PHYSICIAN: [facility]. HISTORY: There is a 28-year-old female with a past medical history of Darline thyroiditis, about a week ago had a bout with what was described as a stomach bug manifested with persistent nausea, vomiting, diarrhea. Said that it lasted 24 hours, got back to her usual state of health, and about her daily activities without any hindrance. Came in on 11/12/2018 complaining of generalized weakness, body aches, cough, and went to [facility] in [place]. They did some blood work and found that everything was within normal limits, but they did notice that her blood pressure was in 80s. Her heart rate was in the 120s, fever 104. Referred her to the emergency room. Patient denies any neck stiffness, genitourinary complaints, GI complaints. Only complains of cough, minimal shortness of breath. So admission diagnosis, respiratory viral illness was suspected. She was admitted and had a contrast CT to rule out possibility of pneumonia. The patient was seen by Infectious Disease. There was worsening lingular consolidation on her chest x-ray consistent with lobar pneumonia. She also had an IgG that was 580 and IgA that was normal at 122, so immunoglobulin deficiency of 580. So was given some immunoglobulin and started on Rocephin and azithromycin originally and was switched to Zyvox and cefepime. She improved clinically. Her x-ray improved and Dr. Garcia felt she could go home. DISCHARGE MEDICATIONS: She can take a Fioricet p.r.n. She had some Tessalon Perles and Synthroid [address] Garcia had given her some Levaquin. He will follow her back in a couple weeks. Recheck her IgG, her immunoglobulin, and see if she needs to get monthly infusions. She will follow up with primary care, Dr. Fer Rivera. cc: Lance Fernandez MD [facility]
--- NOTE | 2018-11-17 17:39 | INFECTIOUS DISEASE PROGRESS NO ---
DATE: 11/17/2018 PRESENT ILLNESS: The patient has left upper lobe pneumonia. She also has an immunoglobulin level with an IgG level of 580. MEDICATIONS: The patient initially was on azithromycin and Rocephin. She was not getting any better. She was switched to cefepime and Zyvox. She got a little bit better but it was not till we gave her an infusion of IVIG that her chest x-ray started to show clearing and the patient felt much better. PHYSICAL EXAMINATION: Vital Signs: Temperature is 98.3 degrees, pulse 107, respirations 16, blood pressure 107/56. General: This is a healthy-appearing but obese middle-aged female. She is in no acute distress. Head, eyes, ears, nose, and throat: She can hear my spoken words and see near objects. She does not have any white patches on her tongue. Neck: No pain with movement. Lungs: Clear to auscultation. Cardiovascular: Regular heart rate. Abdomen: Soft and nontender. Neurologic: The patient is alert. She ambulates without difficulty. LAB AND X-RAY: Chest x-ray shows improvement in the patient's infiltrate. Creatinine is 0.5. GFR is greater than 60. CBC shows a white count of 4790, hemoglobin 12.5 and platelet count 257,000. Sputum culture grew normal demario. ASSESSMENT AND PLAN: The patient's community-acquired infection was severe but it is better and the plan is to send her home on Levaquin 750 mg daily for 10 days. Some of the side effects of Levaquin including rash, diarrhea, seizures, and tendon rupture have been explained to the patient who agrees with treatment. I have requested that the patient come to my office in 10 days at which time she will be examined. We will repeat the x-ray and also get a creatinine too. I told the patient that I will repeat her IgG level in approximately 6 to 8 weeks and if it is still low, I think the patient will be a candidate for IVIG infusions on a monthly basis because she has a history of recurrent chest colds, as she calls them, and also recurrent sinusitis and now she had a severe pneumonia which required hospitalization. COMORBIDITIES: Include chest congestion and prior pneumonias and also recurrent sinusitis and the patient did have a low IgG level. cc: Mack Garcia MD
== END 2018-11-17 18:37 | disposition home or self-care (01) | DRG 194 ==
LOC: EDIPHOLD 15:24 → ED 15:24 → SUATTDRO 15:25 → OBSVTOIN 15:25 → 4N 11-13 07:04
PROVIDERS: ATTEND Emergency Medicine

== ENCOUNTER 2019-04-22 20:22 | Inpatient (IN) ==
[2019-04-22 21:33] LABS: URINE SOURCE CLEAN CATCH
[2019-04-22 21:37] LABS: BILIRUBIN URINE NEGATIVE (NEGATIVE); BLOOD URINE NEGATIVE (NEGATIVE); COLOR YELLOW; GLUCOSE URINE NEGATIVE (NEGATIVE); KETONE URINE NEGATIVE (NEGATIVE); LEUKOCYTES URINE NEGATIVE (NEGATIVE); NITRITE URINE NEGATIVE (NEGATIVE); PH URINE 6.5; PROTEIN URINE NEGATIVE (NEGATIVE); SP GRAVITY URINE 1.023; TURBIDITY URINE CLEAR (CLEAR); UR EPITHELIAL CELLS <10 /HPF (<10); URINE BACTERIA 1+ /HPF; URINE RBC <10 /HPF (<10); URINE WBC <10 /HPF (<10); UROBILINOGEN URINE NORMAL (NORMAL)
[2019-04-22 21:49] LABS: BASO# 0.02 X1000 (0.0-0.2); BASO% 0.2 % (0.0-0.8); EOS# 0.06 X1000 (0.0-0.7); EOS% 0.7 % (0.0-10.0); HEMATOCRIT 41.7 % (37.0-47.0); HEMOGLOBIN 13.3 g/dL (12.0-16.0); LYMPH# 3.52 X1000 (1.2-3.4); LYMPH% 39.2 % (20.5-51.1); MCH 27.8 PG (27-31); MCHC 31.9 g/dL (33-37); MCV 87.2 FL (81-99); MONO# 0.77 X1000 (0.11-0.59); MONO% 8.6 % (1.7-9.3); MPV 11.2 FL (7.4-10.4); NEUT% 51.3 % (42.2-75.2); PLT 271 X1000 (130-400); RBC 4.78 XMIL (4.2-5.4); RDW 13.8 % (11.5-14.5); WBC 8.97 X1000 (4.8-10.8)
[2019-04-22] MEDS ORDERED: ZOFRAN IV ONE (21:53)
[2019-04-22] MEDS ORDERED: TORADOL IV ONE (21:53)
[2019-04-22] MEDS ORDERED: NS 1,000 ML IV ONE (21:53)
[2019-04-22 22:43] LABS: AGAP 13; ALB/GLOB RATIO 1.7; ALKALINE PHOSPHATASE 54 U/L (32-104); BUN 9 mg/dL (8-22); CALCIUM 9.1 mg/dL (8.8-10.2); CHLORIDE 102 mmol/L (98-107); COSMO 278; CREATININE 0.7 mg/dL (0.5-0.9); ESTIMATED GFR > 60; GLUCOSE 93 mg/dL (70-104); GOT 8 U/L (10-30); GPT 10 U/L (10-36); LIPASE 27 U/L (13-60); POTASSIUM 4.2 mmol/L (3.5-5.1); SODIUM 140 mmol/L (136-145); TCO2 25 mmol/L (25-35); TOTAL PROTEIN 6.4 g/dL (6.3-8.3)
--- NOTE | 2019-04-22 22:58 | PROVIDER DOCUMENTATION ---
This chart was entered by Lizzie Davis Scribe, acting as scribe for Geraldine Julien MD. HPI-Abdominal Pain/GI Problem - General Chief Complaint: Abdominal Pain Stated Complaint: (R) ABD PAIN, RADIATES INTO BACK AND SHOULDERBLADE Time Seen by Provider: 04/22/19 21:53 Source: patient Allergies/Adverse Reactions: Patient Allergies Allergy/AdvReac Type Severity Reaction Status Date / Time succinylcholine Allergy Severe coma Verified 04/22/19 22:21 [Succinylcholine] Home Medications: Home Medication List Medication Instructions Recorded Confirmed Last Taken Type Levothyroxine Sodium [Synthroid] 75 mcg PO DAILY@0700 11/13/18 04/22/19 Unknown History - History of Present Illness-ABD Nature of Presenting Problems: pt is a 28yr old female presenting with 9 month complaint of epigastric pain radiating to RUQ and right shoulder blade, pt admits nausea/vomiting. pt is followed by Dr Thomas, learned yesterday she has gallstones. pt denies any relief with norco or tylenol. Abdominal Pain Onset Location: reports: epigastric Pain Radiation: reports: RUQ Quality of Pain: reports: cramping, dull Severity in ED: reports: moderate Onset/Duration: reports: 24 hours ago Timing: reports: still present Activities at Onset: reports: light activity Exposure to sick contacts?: No Modifying Factors: improves with: analgesics (tylenol-no relief), other medication (norco 7.5 no relief) Associated Symptoms: reports: nausea, vomiting. denies: diarrhea, genitourinary problems Dark Stools Present?: reports: none noticed Rectal Bleeding: reports: none Rectal Pain: reports: none # of Vomiting Episodes: 5 Emesis Description: reports: clear (green) Bruising or Bleeding Gums?: No Similar Symptoms Previously?: Yes Recently seen or treated by another doctor?: Yes Review of Systems - Adult - REVIEW OF SYSTEMS - ADULT Constitutional: denies: chills, fever, fatique Eyes: reports: no symptoms reported Ears, Nose, Mouth & Throat: reports: no symptoms reported Cardiovascular: denies: chest pain, palpitations, syncope Respiratory: denies: cough, shortness of breath Gastrointestinal: reports: abdominal pain, nausea, poor appetite, vomiting Genitourinary: denies: dysuria, frequency, flank pain Musculoskeletal: reports: no symptoms reported Integumentary: reports: no symptoms reported Neurological: reports: no symptoms reported Psychiatric: reports: no symptoms reported Endocrine: reports: no symptoms reported Hematologic/Lymphatic: reports: no symptoms reported Allergic/Immunologic: reports: no symptoms reported All Other Systems: Reviewed and Negative Past History - Adult - PAST MEDICAL HISTORY-ADULT Review of Records: reports: Old Records Reviewed, Nursing Assessment Review, Medications Reviewed, Social history reviewed & non-contributory. Major Childhood Illnesses: reports: denies history Cardiovascular: reports: denies history Respiratory: reports: denies history Gastrointestinal: reports: denies history Obstetrical/Gynecological: reports: denies history Genitourinary: reports: denies history Musculoskeletal: reports: denies history Neurological: reports: denies history Endocrine/Immune: reports: denies history Other Conditions: reports: denies history - PRIOR SURGERIES/PROCEDURES Surgical/Procedure History: reports: tonsillectomy - PRIOR HOSPITALIZATIONS Prior Hospitalizations: reports: for other non-related - IMMUNIZATION STATUS Childhood Immunizations: UTD Flu Vaccine: See Nurse Assessment - FAMILY HISTORY Family History: reviewed, not pertinent - SOCIAL HISTORY Living Situation: family Physical Exam-General - PHYSICAL EXAM-ADULT Initial Vital Signs Reviewed: Yes - CONSTITUTIONAL General Appearance: alert, mild distress (uncomfortable appearing, tearful) - EYES Eyes: PERRL/EOMI - HEAD, EARS, NOSE, MOUTH & THROAT HENMT: normocephalic/atraumatic, moist mucous membranes, normal ENT inspection - NECK Neck: non-tender, full range of motion, supple, normal inspection - RESPIRATORY Respiratory: chest non-tender, lungs clear, normal breath sounds - CARDIOVASCULAR Cardiovascular: normal peripheral pulses, regular rate, rhythm, no edema - GASTROINTESTINAL (ABDOMEN) Abdominal Exam: normal bowel sounds, soft, tenderness (epigastric, RUQ) - LYMPHATIC Lymphatic: no adenopathy - MUSCULOSKELETAL Back Exam: normal inspection, no vertebral tenderness Extremity: normal range of motion, non-tender, normal gait, normal inspection - SKIN Integumentary: normal color, normal turgor, warm/dry - NEUROLOGIC Neurologic: grossly normal, no motor/sensory deficits - PSYCHIATRIC Psych/Mental Status: normal thought content, normal thought process, oriented x 3, anxious, tearful Progress - PLAN OF CARE/RESULTS Progress/Plan/Lab Results: Vital Signs - 8 hr 04/22/19 20:27 Temperature 98.0 F Pulse Rate 76 Respiratory Rate 18 Blood Pressure 119/67 O2 Sat by Pulse Oximetry 99 Bedside Urine ED: Urine Bedside Start: 04/22/19 21:13 Freq: ORDERED Status: Active Protocol: Activity Type Activity Date Activity User E-Sign Co-Sign Detail Recorded Client Recorded Date Recorded By Document 04/22/19 21:13 [id number] 04/22/19 21:14 [id number] 04/22/19 21:13 Point of Care [Bedside Point of Care] -Lot # [id number] - Results Negative -Control Line Visible? Yes Laboratory Results - last 24 hr 04/22/19 04/22/19 21:12 21:34 WBC 8.97 RBC 4.78 Hgb 13.3 Hct 41.7 MCV 87.2 MCH 27.8 MCHC 31.9 L RDW Std Deviation 13.8 Plt Count 271 MPV 11.2 H Immature Gran % (Auto) 0.0 Neut % (Auto) 51.3 Lymph % (Auto) 39.2 Hitchcock % (Auto) 8.6 Eos % (Auto) 0.7 Baso % (Auto) 0.2 Immature Gran # (Auto) 0.00 Neut # (Auto) 4.60 Lymph # (Auto) 3.52 H Hitchcock # (Auto) 0.77 H Eos # (Auto) 0.06 Baso # (Auto) 0.02 Urine Source CLEAN CATCH Urine Color YELLOW Urine Turbidity CLEAR Urine pH 6.5 Ur Specific [place] 1.023 Urine Protein NEGATIVE Ur Glucose (Stick) NEGATIVE Ur Ketones (Stick) NEGATIVE Urine Blood NEGATIVE Urine Nitrite NEGATIVE Urine Bilirubin NEGATIVE Urobilinogen Dipstick NORMAL Urine Leukocytes NEGATIVE Urine WBC (Auto) <10 Urine RBC (Auto) <10 U Epithel Cells (Auto) <10 Urine Bacteria (Auto) 1+ Orders Category Date Time Status ED: Urine Bedside ORDERED Care 04/22/19 21:13 Active Saline Loc NOW Care 04/22/19 21:13 Active NPO Diet 04/22/19 21:[address] ABD/PELVIS W/IV CONT ONLY [CT] Stat Exams 04/22/19 22:27 Ordered CBC WITH DIFF [HEME] Stat Lab 04/22/19 21:34 Completed COMPREHENSIVE METABOLIC PANEL [CHEM] Stat Lab 04/22/19 21:34 Received LIPASE [CHEM] Stat Lab 04/22/19 21:34 Received URINALYSIS [URINALYSIS] Stat Lab 04/22/19 21:12 Completed 0.9% Sodium Chloride Inj [Ns] 1,000 ml Med 04/22/19 21:53 Active IV 999 mls/hr Ketorolac [Toradol] Med 04/22/19 21:53 Discontinued 30 mg IV NOW ONE Ondansetron [Zofran] Med 04/22/19 21:53 Discontinued 4 mg IV NOW ONE Abd Pain/OB <20 weeks Stat Oth 04/22/19 21:[address] showing concern for possible small bowel obstruction. CT showing no gallstones. Will order US. Her LFTs, WBC and tibili are all normal. Her pain was well controlled but give her history of gastric sleeve and concern for SBO with 9 months off and on pain for possible GB will admit for OBS admission. Spoke to Vikram engineer second assistant for general surgery who will see her in consult. Spoke to Dr Garcia engineer second assistant for hospitalist who accepted patient for admission to OBS. Further orders to be placed by their team. Result Diagrams: 04/22/19 21:34 04/22/19 21:34 - CT/MRI 1 CT Study: Abdomen, Pelvis Impression: Abnormal (1 small bowel ileus versus partial/early bowel obstruction 2 very mild pelvic ascites 3 no acute inflammatory chnages 4 normal appendix) - CONSULTS/PCP/HOSPITALIST Notification #1 *Consult/PCP/Hospitalist*: Dr Jiménez Time Discussed: 00:31 Consult Disposition: other (will see patient in consult, admit to hosp) #2 Consult: Dr Garcia Time Discussed: 00:35 Consult Disposition: Admit (will admit for OBS) Departure - Departure Date of Disposition Decision: 04/23/19 Time of Disposition Decision: 00:59 DIAGNOSIS: Small bowel obstruction, History of gastric restrictive surgery, RUQ abdominal pain Disposition: ADMITTED INPATIENT 09 Certified Medical Emergency: Emergent Condition: Stable Referrals and Follow-Ups: Fer Rivera [Primary Care Provider] - - Critical Care Note This patient required my direct & personal management of CC.: No Attestation - Physician/ TORRES Attestation Patient care was provided by Advanced Practice Provider:: No The physician spent face to face time with patient:: Yes Advanced Practice Provider documentation review:: Supervising physician onsite and consulted in the evaluation and care of this patient. The physician did have a face to face encounter with the patient. This chart was documented by the indicated scribe, (Lizzie Davis Scribe) and accurately reflects the services I performed and decisions made by me, Geraldine Julien MD, as attested by the provider's signature.
[2019-04-23] MEDS ORDERED: ATIVAN IV ONE (00:06)
[2019-04-23] MEDS ORDERED: NS 1,000 ML IV ONE (00:16)
[2019-04-23] MEDS ORDERED: TYLENOL PO PRN (02:08)
[2019-04-23] MEDS: MORPHINE IV PRN ×3 (02:35→22:19)
[2019-04-23] MEDS: ZOFRAN IV PRN ×2 (02:36→22:19)
[2019-04-23] MEDS: NS 1,000 ML IV SCH ×3 (02:36→18:36)
--- NOTE | 2019-04-23 04:08 | HISTORY AND PHYSICAL ---
PRIMARY CARE PHYSICIAN: Dr. Fer Rivera. CHIEF COMPLAINT: Abdominal pain. 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 Patient states that she was having some nausea and vomiting during this time. The patient states that the symptoms were worsening and subsequently she had come to the emergency department. Patient was evaluated in the ED and she had imaging done which did show possibly ileus versus early partial small bowel obstruction. Due to these findings, it was thought that she would need admission for further management. The patient also states that she had a recent ultrasound that did show that she had gallstones. At the time of my examination, she denied any headache, fever, chills, chest pain, shortness of breath or any weight changes, but complained of abdominal pain. PAST MEDICAL HISTORY: Includes Darline thyroiditis. PAST SURGICAL HISTORY: Gastric sleeve. ALLERGIES: Succinylcholine. CURRENT MEDICATIONS: Include levothyroxine 75 mcg p.o. daily. SOCIAL HISTORY: She is a former smoker. History of social alcohol use. Denies any illicit drug use. FAMILY HISTORY: Positive for coronary disease in father. REVIEW OF SYSTEMS: Fourteen point review of systems is as listed in HPI. Other systems negative. PHYSICAL EXAMINATION: GENERAL: Cooperative, friendly female. She is resting comfortably now. VITAL SIGNS: Temperature 98.0 degrees, pulse 76, respiration 18, blood pressure 119/67. HEENT: Atraumatic, normocephalic. Extraocular movements intact. PERRLA. NECK: Supple. CHEST: Clear to auscultation. CARDIOVASCULAR: Regular rate and rhythm. S1, S2. ABDOMEN: Soft, some mild tenderness. EXTREMITIES: No edema. NEUROLOGIC: She is awake, alert, oriented x3. GENITOURINARY: No bladder distention. SKIN: Warm. LABORATORIES AND STUDIES: WBC is 8.97, hemoglobin 13.3, hematocrit 41.7, platelets 271,000. Sodium 140, potassium 4.2, chloride 102, CO2 is 25, BUN is 9, creatinine 0.7, glucose is 93. ASSESSMENT: A 28-year-old female with a history of Darline thyroiditis who had presented to emergency department with several days history of worsening abdominal pain. She was evaluated in the emergency department. She had imaging done which did show ileus versus partial small bowel obstruction. Subsequently, we will place her for observation for further evaluation and management. 1. Abdominal pain. 2. Ileus versus partial early small-bowel obstruction. 3. Darline thyroiditis. PLAN: 1. We will admit patient to medical floor. 2. Keep patient NPO. 3. Continue with adequate hydration, antiemetics, pain control. 4. Consult General Surgery. 5. We will put the patient on DVT prophylaxis with SCD. 6. We will continue to follow and reassess, make further recommendation based on patient's clinical course. cc: Juanpablo Garcia MD
--- NOTE | 2019-04-23 06:46 | Diag Imaging Result Doc PS360 ---
CT ABD/PELVIS W/IV CONT ONLY - 04/22/2019 INDICATION: RUQ abd pain, gallstones, nausea, vomiting COMPARISON: 12/22/2013 FINDINGS: The lung bases are clear and the heart size is normal. Abdominal organs are all normal. There are apparent gastric sleeve changes. There are several mildly fluid distended loops of small bowel mainly in the left upper quadrant. These measure up to 2.9 cm in caliber. There is moderate stool throughout the colon. No free air. Trace pelvic free fluid. There appears to be a pessary. Urinary bladder, uterus, and rectum are normal. Bones are intact and well mineralized. IMPRESSION: 1. Small bowel ileus versus partial small bowel obstruction. 2. Trace pelvic free fluid, likely physiologic. This exam was performed using automated exposure control, adjustment of mA or kV according to patient size, and/or use of iterative reconstruction technique Electronically signed by Den Sanches 04/23/2019 6:44 AM
--- NOTE | 2019-04-23 06:51 | Diag Imaging Result Doc PS360 ---
US GB < RUQ (LIMITED) - 04/22/2019 INDICATION: ruq pain TECHNIQUE: COMPARISON: CT abdomen pelvis with contrast 04/22/2019 FINDINGS: There are several small shadowing stones layering in the gallbladder. No gallbladder distention, wall thickening, or free fluid. The liver is normal. No biliary dilation. Common bile duct measures 2.7 mm. The pancreas is mostly obscured. The right kidney is normal. Aorta, IVC, and main portal vein are patent. No free fluid. IMPRESSION: Several small gallstones in the gallbladder. No evidence of cholecystitis. Electronically signed by Den Sanches 04/23/2019 6:49 AM
[2019-04-23] MEDS: SYNTHROID PO SCH (14:51)
--- NOTE | 2019-04-23 16:30 | GENERAL SURGERY CONSULTATION ---
DATE: 04/23/2019 REQUESTING PHYSICIAN: Hospitalist. REASON FOR CONSULTATION: Bowel obstruction versus ileus versus gallbladder disease. HISTORY OF PRESENT ILLNESS: A 28-year-old female with a history of Darline's thyroiditis, who presented to the emergency department with complaints of abdominal pain, epigastric. It has been going on for several days. She had some associated nausea and vomiting. She says it is associated with food and usually worse when she has had something fried. She has never had issues like this before, but she did have a recent gastric sleeve surgery and has lost 85 pounds. She was seen in the emergency department, had a CT scan that was not convincingly showing a bowel obstruction, but there was some concern. She had an ultrasound that showed cholelithiasis. She reports again, pain in the epigastric region. PAST MEDICAL HISTORY: Includes Darline's thyroiditis. PAST SURGICAL HISTORY: Includes gastric sleeve. ALLERGIES: Succinylcholine. CURRENT MEDICATIONS: Include Synthroid 75 mcg. SOCIAL HISTORY: Former smoker. Social alcohol. FAMILY HISTORY: Reviewed with the patient and noncontributory. REVIEW OF SYSTEMS: Full 14 systems reviewed, negative except as specified in HPI. PHYSICAL EXAMINATION: Vital Signs: Patient is currently afebrile. Vital signs are stable. General: No acute distress. HEENT: Normocephalic, atraumatic. Pupils equal, round, reactive to light. Mucous membranes moist. Oropharynx benign. Neck: Supple. Trachea midline. Cardiovascular: Regular rate and rhythm. Lungs: Grossly clear. Abdomen: Soft. Tenderness noted in the epigastric and right upper quadrant, but no peritoneal signs. Extremities: Moves all extremities. Neurologic: Grossly intact. Skin: No signs of jaundice. Vascular: All extremities perfused. LABORATORY AND DIAGNOSTIC DATA: White blood cell count normal. Hematocrit is normal. Platelet count is normal. Remainder of labs reviewed. CT scan and ultrasound independently reviewed, and radiology report reviewed and noted above. ASSESSMENT/PLAN: A 28-year-old female with abdominal pain. Abdominal pain: At this time, her history sounds more consistent with symptomatic cholelithiasis. I do not think she has a bowel obstruction. She has irregular bowel habits and may need some degree of endoscopy in the future for this, but at this point, I do not think it is a bowel issue. Discussed with her cholecystectomy. Discussed with her the risks, benefits, and alternatives of the procedure. Risks including, but not limited to, bleeding, infection, risk of anesthesia, risk of common bile duct injury and bile leak all discussed. Also, discussed the risk of injury to other organs. She is aware. She wants to proceed with the procedure. We will plan on doing this in the morning. We will let her have a clear liquid diet tonight, NPO after midnight, and I will schedule her for the morning through the house painter helper. cc: Carlton George MD
[2019-04-24] MEDS: SYNTHROID PO SCH (06:27)
[2019-04-24 07:27] LABS: BASO# 0.01 X1000 (0.0-0.2); BASO% 0.1 % (0.0-0.8); EOS# 0.07 X1000 (0.0-0.7); HEMATOCRIT 37.4 % (37.0-47.0); HEMOGLOBIN 11.6 g/dL (12.0-16.0); LYMPH# 2.11 X1000 (1.2-3.4); LYMPH% 31.4 % (20.5-51.1); MCH 27.2 PG (27-31); MCV 87.8 FL (81-99); MONO# 0.46 X1000 (0.11-0.59); MONO% 6.8 % (1.7-9.3); MPV 11.7 FL (7.4-10.4); NEUT# 4.07 X1000 (1.4-6.5); NEUT% 60.7 % (42.2-75.2); PLT 220 X1000 (130-400); RBC 4.26 XMIL (4.2-5.4); RDW 13.5 % (11.5-14.5); WBC 6.72 X1000 (4.8-10.8)
[2019-04-24] MEDS ORDERED: FENTANYL ONE ×2 (07:33→07:51)
[2019-04-24] MEDS ORDERED: DIPRIVAN 1% ONE ×3 (07:36→08:21)
[2019-04-24] MEDS ORDERED: XYLOCAINE 1%/EPI 1:100,000 ONE (07:36)
[2019-04-24] MEDS ORDERED: SODIUM CHLORIDE 0.9% ONE (07:37)
[2019-04-24] MEDS ORDERED: LR 1,000 ML ONE (07:37)
[2019-04-24] MEDS ORDERED: ZEMURON ONE ×2 (07:38→07:55)
[2019-04-24] MEDS ORDERED: XYLOCAINE-MPF 2% ONE (07:41)
[2019-04-24] MEDS ORDERED: DECADRON ONE (07:41)
[2019-04-24] MEDS ORDERED: ROBINUL ONE (07:41)
[2019-04-24] MEDS ORDERED: ZOFRAN ONE (07:41)
[2019-04-24] MEDS ORDERED: TORADOL ONE (07:41)
[2019-04-24] MEDS ORDERED: NEOSTIGMINE ONE ×2 (07:41→08:38)
--- NOTE | 2019-04-24 07:50 | GENERAL SURGERY PROGRESS NOTE ---
DATE: 04/24/2019 SUBJECTIVE: Patient seems to be doing okay. She had a couple of attacks last night but seems to be doing all right. OBJECTIVE: Vital Signs: Patient is currently afebrile. Her vital signs are stable. General: No acute distress. Cardiovascular: Regular rate and rhythm. Lungs: Grossly clear. Abdomen: Soft. No real significant change. ASSESSMENT AND PLAN: A 28-year-old female with likely symptomatic cholelithiasis. #1 symptomatic cholelithiasis. At this time, we will plan on surgical intervention. There is some concern potentially of an ileus versus bowel obstruction, so we will examine this during the procedure also, but we discussed the risks, benefits, and alternatives of the procedure yesterday. We will plan on intervention today. cc: Carlton George MD
[2019-04-24] MEDS ORDERED: VERSED ONE (07:56)
[2019-04-24] MEDS ORDERED: MEFOXIN 2 GM/NS 2 GM/50 ML IVPB ONE (07:56)
[2019-04-24] MEDS ORDERED: MEFOXIN 2 GM/NS 2 GM/50 ML IVPB IV ONE (08:00)
[2019-04-24 08:03] LABS: AGAP 10; ALBUMIN 3.2 g/dL (3.5-5.0); BUN 4 mg/dL (8-22); CALCIUM 8.4 mg/dL (8.8-10.2); CHLORIDE 109 mmol/L (98-107); COSMO 281; CREATININE 0.6 mg/dL (0.5-0.9); ESTIMATED GFR > 60; GLUCOSE 83 mg/dL (70-104); PHOSPHORUS 2.9 mg/dL (2.7-4.5); POTASSIUM 3.7 mmol/L (3.5-5.1); SODIUM 143 mmol/L (136-145); TCO2 24 mmol/L (25-35)
[2019-04-24] MEDS ORDERED: BENADRYL ONE (09:16)
[2019-04-24] MEDS ORDERED: LR 500 ML ONE (09:16)
--- NOTE | 2019-04-24 09:19 | OPERATIVE NOTE ---
PROCEDURE DATE: 04/24/2019 PREOPERATIVE DIAGNOSIS: Chronic cholecystitis. POSTOP DIAGNOSIS: Chronic cholecystitis. PROCEDURE: Laparoscopic cholecystectomy. SURGEON: Carlton George MD. MERCHANDISE FLOW MANAGER: None. ANESTHESIA: General endotracheal. INTRAOPERATIVE FINDINGS: Chronic cholecystitis. COMPLICATIONS: None at the time of this dictation. ESTIMATED BLOOD LOSS: 10 mL. SPECIMEN REMOVED: Gallbladder. BRIEF HISTORY: A 28-year-old female presenting with postprandial nausea, vomiting and right upper quadrant epigastric pain. It is felt that she would benefit from a cholecystectomy. The risks, benefits, and alternatives were discussed. Risks including, but not limited to bleeding, infection, risk of anesthesia, risk of injuring other organs, risk of common bile duct leak and injury discussed with the patient and all questions answered. DESCRIPTION OF PROCEDURE: After informed consent was obtained, the patient was brought to the operative theatre, transferred to the operating table, placed in supine position. General endotracheal anesthesia was then performed without complication. A formal time-out was then performed confirming patient and date of procedure. All were in agreement. At that time, attention was given to the abdomen. An infraumbilical incision was made through which using the Optiview technique we inserted an 11 mm trocar, connected insufflation, pneumoperitoneum was achieved. Under direct visualization, we placed 3 more trocars, all 5 mm, one in the subxiphoid, two in the right upper quadrant. Using these, gallbladder was identified and retracted cephalad. We were able to dissect out the cystic duct and cystic artery to achieve the critical view of safety. We then doubly clipped and ligated the cystic duct and cystic artery, then dissected the gallbladder off the gallbladder fossa using electrocautery. We brought it out through the infraumbilical incision. We then reexamined the gallbladder fossa. There was no drainage of bile. No bleeding. I did not see any other pathology that was obvious intra-abdominally. The infraumbilical trocar site was offset enough that we did not have to close it. It was airtight. We then removed all trocars, disconnected insufflation. Pneumoperitoneum was released. All skin were incisions closed with 4-0 Monocryl. The patient tolerated the procedure well. cc: Carlton George MD
[2019-04-24] MEDS ORDERED: SODIUM CHLORIDE 0.9% 10 ML ONE (09:31)
[2019-04-24] MEDS ORDERED: PHENERGAN ONE (09:31)
[2019-04-24] MEDS ORDERED: NORCO-5 ONE (09:48)
[2019-04-24] MEDS ORDERED: NORCO-5 PO PRN (10:11)
--- NOTE | 2019-04-24 10:34 | PROGRESS NOTE ---
DATE: 04/24/2019 SUBJECTIVE: Patient reports feeling fine, passing gases. Still right upper quadrant abdominal pain. OBJECTIVE: Vital Signs: Temperature 98.8 degrees, heart rate 75, respiratory 14, blood pressure 107/61, O2 saturation 100% on room. General examination: This is a 28-year-old female lying in bed, in no acute distress. Cardiovascular exam: S1, S2 heard. No murmurs, gallops, or rubs. Regular rate and rhythm. Respiratory exam: Clear bilaterally to auscultation. No work of breathing or using accessory muscles. Abdomen: Soft, mild tender to palpation in the right upper quadrant. No signs of peritoneal irritation. Extremities: No clubbing, cyanosis, or edema. Peripheral pulses present in both legs. Neurological exam: The patient alert and oriented x3. Moves 4 extremities. LABORATORY DATA: Reviewed. ASSESSMENT AND PLAN: Abdominal pain. Although initially we thought that this patient may have ileus versus partial early small bowel obstruction, Dr. George thinks that this patient is coming from symptomatic cholelithiasis that was confirmed with abdominal ultrasound. At this point, they have decided to go have a laparoscopic cholecystectomy today, we will see how this patient does. cc: Haja Espinoza MD
[2019-04-24] MEDS: MORPHINE IV PRN ×2 (12:39→18:44)
[2019-04-25] MEDS: ZOFRAN IV PRN (04:02)
[2019-04-25] MEDS: MORPHINE IV PRN ×2 (04:02→09:58)
[2019-04-25] MEDS: SYNTHROID PO SCH (06:34)
--- NOTE | 2019-04-25 07:03 | GENERAL SURGERY PROGRESS NOTE ---
DATE: 04/25/2019 SUBJECTIVE: The patient is feeling better. She has a little sore from her surgery but otherwise is feeling okay. OBJECTIVE: Vital Signs: The patient is currently afebrile. Her vital signs are stable. General Examination: No acute distress. Cardiovascular: Regular rate and rhythm. Lungs: Grossly clear. Abdomen: Soft. Appropriately tender. ASSESSMENT AND PLAN: A 28-year-old female postoperative day #1 from laparoscopic cholecystectomy. Postoperative state. At this time, the patient seems to be doing well. From a surgical point of view, she could probably be discharged home. cc: Carlton George MD
[2019-04-25 07:43] VITALS: BP 97/50
[2019-04-25 08:06] LABS: BASO# 0.01 X1000 (0.0-0.2); BASO% 0.1 % (0.0-0.8); EOS# 0.03 X1000 (0.0-0.7); EOS% 0.4 % (0.0-10.0); HEMATOCRIT 35.2 % (37.0-47.0); HEMOGLOBIN 10.9 g/dL (12.0-16.0); IMM GRAN# 0.02 X1000 (0.0-0.04); IMM GRAN% 0.2 % (0.0-0.5); LYMPH# 3.25 X1000 (1.2-3.4); MCH 27.3 PG (27-31); MCV 88.2 FL (81-99); MONO# 0.64 X1000 (0.11-0.59); MONO% 7.5 % (1.7-9.3); MPV 11.6 FL (7.4-10.4); NEUT% 53.8 % (42.2-75.2); PLT 208 X1000 (130-400); RBC 3.99 XMIL (4.2-5.4); RDW 13.4 % (11.5-14.5); WBC 8.55 X1000 (4.8-10.8)
[2019-04-25 08:32] LABS: AGAP 9; ALBUMIN 2.9 g/dL (3.5-5.0); BUN 5 mg/dL (8-22); CALCIUM 8.5 mg/dL (8.8-10.2); CHLORIDE 105 mmol/L (98-107); COSMO 274; CREATININE 0.6 mg/dL (0.5-0.9); ESTIMATED GFR > 60; GLUCOSE 84 mg/dL (70-104); PHOSPHORUS 3.6 mg/dL (2.7-4.5); POTASSIUM 3.3 mmol/L (3.5-5.1); SODIUM 139 mmol/L (136-145); TCO2 25 mmol/L (25-35)
--- NOTE | 2019-04-25 15:18 | DISCHARGE SUMMARY ---
ADMISSION DATE: 04/23/2019 DISCHARGE DATE: 04/25/2019 PRIMARY CARE PHYSICIAN: Dr. Fer Rivera. CONSULTATIONS: General Surgery. ADMISSION DIAGNOSES: 1. Abdominal pain. 2. Ileus versus partial small early bowel obstruction. 3. Darline's thyroiditis. DISCHARGE DIAGNOSES: 1. Status post laparoscopic cholecystectomy. 2. Abdominal pain, resolved. 3. Draline's thyroiditis. SUMMARY OF FINDINGS: This is a 28-year-old female who presented to the emergency room with abdominal pain for the past several days. Had some nausea, vomiting. Imaging showed possibly an ileus versus early partial small-bowel obstruction. We consulted Surgery, and they did an abdomen ultrasound as they felt that this may be her gallbladder. She was noted on the ultrasound to have several small gallstones in the gallbladder but no evidence of cholecystitis. So on 04/24/2019, it was decided to go to surgery and have a laparoscopic cholecystectomy. Patient tolerated the procedure well. She has advanced her diet to a healthy heart and tolerating well, and it is now felt that she can safely be discharged home. DISCHARGE MEDICATIONS: Include: 1. Fidelity 5 one p.o. q.6 hours p.r.n. 2. Synthroid 75 mcg p.o. daily. FOLLOWUP: She will need to follow up with her primary care physician and with General Surgery in the next 1 to 2 weeks and call their office for an appointment. All discharge instructions were reviewed with the patient, and she verbalized understanding. 35 minute discharge. Dictated by DOMI Cruz for Haja Espinoza MD cc: DOMI Cruz MD Alan Walker, MD Matthew L. Figh, MD
== END 2019-04-25 10:52 | disposition home or self-care (01) | DRG 419 ==
LOC: 3N 20:22 → ED 20:22 → SUATTDRO 04-23 01:52 → OBSVTOIN 04-23 01:52
PROVIDERS: ATTEND Internal Medicine

== ENCOUNTER 2019-04-30 10:33 | Inpatient (IN) ==
[2019-04-30] MEDS ORDERED: NS 1,000 ML IV ONE (10:49)
[2019-04-30 11:59] LABS: BASO# 0.01 X1000 (0.0-0.2); BASO% 0.1 % (0.0-0.8); HEMATOCRIT 40.8 % (37.0-47.0); HEMOGLOBIN 13.3 g/dL (12.0-16.0); IMM GRAN# 0.02 X1000 (0.0-0.04); IMM GRAN% 0.2 % (0.0-0.5); LYMPH# 1.27 X1000 (1.2-3.4); LYMPH% 12.8 % (20.5-51.1); MCH 28.2 PG (27-31); MCHC 32.6 g/dL (33-37); MCV 86.4 FL (81-99); MONO# 0.58 X1000 (0.11-0.59); MONO% 5.9 % (1.7-9.3); MPV 11.5 FL (7.4-10.4); NEUT# 8.02 X1000 (1.4-6.5); PLT 266 X1000 (130-400); RBC 4.72 XMIL (4.2-5.4); RDW 13.6 % (11.5-14.5)
[2019-04-30] MEDS ORDERED: DILAUDID IV PRN ×2 (12:36→14:34)
[2019-04-30 12:43] LABS: AGAP 13; ALB/GLOB RATIO 1.7; ALBUMIN 4.3 g/dL (3.5-5.0); ALKALINE PHOSPHATASE 77 U/L (32-104); BUN 9 mg/dL (8-22); CALCIUM 9.3 mg/dL (8.8-10.2); CHLORIDE 101 mmol/L (98-107); COSMO 274; CREATININE 0.6 mg/dL (0.5-0.9); ESTIMATED GFR > 60; GLUCOSE 94 mg/dL (70-104); GOT 34 U/L (10-30); GPT 21 U/L (10-36); LIPASE 20 U/L (13-60); POTASSIUM 4.6 mmol/L (3.5-5.1); SODIUM 138 mmol/L (136-145); TCO2 24 mmol/L (25-35); TOTAL BILIRUBIN 0.37 mg/dL (0.20-1.00); TOTAL PROTEIN 6.8 g/dL (6.3-8.3)
[2019-04-30] MEDS: ZOFRAN IV PRN ×2 (12:50→12:51)
[2019-04-30] MEDS: MEFOXIN 2 GM/NS 2 GM/50 ML IVPB IV SCH ×2 (14:24→20:22)
[2019-04-30] MEDS ORDERED: DIPRIVAN 1% ONE ×5 (14:52→16:01)
[2019-04-30] MEDS ORDERED: FENTANYL ONE (15:01)
[2019-04-30] MEDS ORDERED: SENSORCAINE 0.25%/EPI 1:200,000 ONE (15:03)
[2019-04-30] MEDS ORDERED: VERSED ONE (15:07)
[2019-04-30] MEDS ORDERED: LR 1,000 ML IV ONE (16:32)
[2019-04-30] MEDS: ZOFRAN ONE ×2 (16:38→17:43)
[2019-04-30] MEDS: TORADOL ONE ×2 (16:39→17:42)
[2019-04-30] MEDS: BENADRYL ONE ×2 (16:48→17:43)
--- NOTE | 2019-04-30 18:53 | HISTORY AND PHYSICAL ---
MAIN DIAGNOSIS: Abdominal pain. HISTORY OF PRESENT ILLNESS: A 28-year-old female, well known to me whom I did a laparoscopic cholecystectomy on 04/24/2019. She reports that she had be doing well up until last night where she felt a pain. She came to the emergency department this morning, had a CT scan evaluation. The CT scan was essentially unimpressive and unimpressive labs. She was discharged with the thought to follow up on Friday. She had worsening pain and decided to come back to the emergency department about 4 hours later. She has become more tachycardic, a little more uncontrolled with her pain and I offered her diagnostic laparoscopy and admission. The risks, benefits, and alternatives for procedure were discussed. All questions answered. PAST MEDICAL HISTORY: Darline's thyroiditis. PAST SURGICAL HISTORY: Includes recent cholecystectomy and gastric sleeve. ALLERGIES: Succinylcholine. CURRENT HOME MEDICATIONS: Reviewed. SOCIAL HISTORY: Former smoker. FAMILY HISTORY: Positive for malignant hyperthermia. REVIEW OF SYSTEMS: Full 14 systems reviewed and negative except as specified in the HPI. PHYSICAL EXAMINATION: VITAL SIGNS: The patient is currently afebrile. She has a heart rate in the 110s. Blood pressure stable. GENERAL: Uncomfortable female looks stated age. HEENT: Normocephalic, atraumatic. Pupils equal, round, reactive to light. Mucous membranes moist. Oropharynx benign. NECK: Supple trachea midline. CARDIOVASCULAR: Regular rate and rhythm. Some mild tachycardia. LUNGS: Grossly clear. ABDOMEN: Some diffuse abdominal tenderness. EXTREMITIES: Moves all extremities. NEUROLOGIC: Grossly intact. SKIN: No signs of jaundice. VASCULAR: All extremities perfused. LABORATORY: Reviewed, white count normal, although she has a slight left shift at this point, but only minimal. CMP is normal. AST, ALT and alkaline phosphatase are essentially normal. Bilirubin is also normal. CT scan as noted from this morning reviewed again. ASSESSMENT/PLAN: A 28-year-old female with abdominal pain: Abdominal pain. At this time, we will plan on diagnostic laparoscopy and see if there is any other pathology not appreciated on the CT scan given her pain. We will admit her and put her on intravenous pain medicine. cc: Carlton George MD
[2019-04-30] MEDS: NORCO-10 PO PRN (20:22)
[2019-04-30 20:40] LABS: URINE SOURCE CLEAN CATCH
[2019-04-30 20:42] LABS: BILIRUBIN URINE NEGATIVE (NEGATIVE); BLOOD URINE NEGATIVE (NEGATIVE); COLOR YELLOW; GLUCOSE URINE NEGATIVE (NEGATIVE); KETONE URINE 20 mg/dL (NEGATIVE); LEUKOCYTES URINE NEGATIVE (NEGATIVE); NITRITE URINE NEGATIVE (NEGATIVE); PROTEIN URINE TRACE mg/dL (NEGATIVE); SP GRAVITY URINE 1.028; TURBIDITY URINE CLEAR (CLEAR); UROBILINOGEN URINE NORMAL (NORMAL)
[2019-04-30 20:51] LABS: UR EPITHELIAL CELLS <10 /HPF (<10); URINE BACTERIA 1+ /HPF; URINE RBC <10 /HPF (<10); URINE WBC <10 /HPF (<10)
[2019-04-30 20:56] LABS: URINE CASTS NONE SEEN; URINE CRYSTALS NONE SEEN; URINE SMALL ROUND CELLS TRANS PRESENT; URINE YEAST NONE SEEN
[2019-04-30] MEDS: DILAUDID IV PRN (21:33)
--- NOTE | 2019-04-30 21:42 | OPERATIVE NOTE ---
PROCEDURE DATE: 04/30/2019 PREOPERATIVE DIAGNOSIS: Abdominal pain. POSTOPERATIVE DIAGNOSIS: Abdominal pain, plus possible bile leak. PROCEDURE: Diagnostic laparoscopy with washout. SURGEON: Dr. Carlton George. RN SECURITY: None. ANESTHESIA: General endotracheal. INTRAOPERATIVE FINDINGS: Some minimal amount of bile tinged fluid in the abdomen. No obvious injury to the bowel or stomach or any other pathology appreciated in the abdomen. COMPLICATIONS: None at the time of this dictation. ESTIMATED BLOOD LOSS: 5 mL. SPECIMENS REMOVED: None. BRIEF HISTORY: A 28-year-old female who took her gallbladder out a week ago. She came in after having 1 day history of abdominal pain. She had been doing well otherwise up to that, but had developed pain the night prior. Her labs were normal and CT scan was normal, but she still had significant pain and tachycardia. It was felt that she would benefit from a diagnostic laparoscopy. The risks, benefits, and alternatives for the procedure were discussed with the patient. All questions were answered. DESCRIPTION OF PROCEDURE: After informed consent was obtained, patient brought to the operative theatre, transferred to the operating table, and placed in supine position. General endotracheal anesthesia was then performed without complication. A formal time-out was then performed, confirming patient and procedure. All were in agreement. At that time, attention was given to the abdomen. Through a previous infraumbilical incision, we made an incision using Optiview technique, inserted 11 mm trocar, connected to insufflation, and pneumoperitoneum was achieved. We then placed trocars back in her previous trocar sites for her laparoscopic cholecystectomy. We examined the abdomen. There was a minimal amount of bile tinged fluid up by her liver, which we suctioned out. We were able to see her gallbladder fossa. I did not see any active drainage of bile. There was no significant injury to the liver. The small bowel appeared to be grossly normal. The stomach appeared to be grossly normal. Down in the pelvis appeared to be grossly normal. We irrigated out the abdomen with a significant amount of fluid until the suction fluid was clear. Given the possibility there was a bile leak, we left a drain from the most lateral trocar site, placed in the gallbladder fossa, and secured it in place. We then removed all trocars, disconnected insufflation, and pneumoperitoneum was released. All skin incisions were closed with 4-0 Monocryl and we closed the infraumbilical incision with 0 Vicryl on a Steve- Dipesh device. Again, I did not see an obvious significant amount of bile in the abdomen, but given the possibility, we are going to treat it as though she has one, and will monitor on the floor. cc: Carlton George MD
[2019-05-01] MEDS: DILAUDID IV PRN ×5 (01:19→23:29)
[2019-05-01] MEDS: MEFOXIN 2 GM/NS 2 GM/50 ML IVPB IV SCH ×4 (01:28→20:51)
[2019-05-01] MEDS: NORCO-10 PO PRN ×2 (11:20→18:15)
[2019-05-01] MEDS: LOVENOX SUBQ SCH (14:31)
[2019-05-01] MEDS: ZOFRAN IV PRN (14:31)
--- NOTE | 2019-05-01 18:58 | GENERAL SURGERY PROGRESS NOTE ---
DATE: 05/01/2019 SUBJECTIVE: She feels much better after her diagnostic laparoscopy with washout yesterday. Drain output has been minimal. No fevers. No tachycardia. There is slight bile tinge to it. OBJECTIVE: Her incisions are intact. LABORATORY DATA: No new labs this morning, but her liver function tests showed normal bilirubin yesterday. ASSESSMENT AND PLAN: A 28-year-old female with a low-volume bile leak after cholecystectomy by Dr. George. We will advance her diet. We will monitor the drain. If it remains low, we can let her go home with the drain and anticipate spontaneous resolution. Otherwise, she may need ERCP. I discussed this plan with the patient. She will be out of bed and ambulating. cc: MD Carlton Patterson MD
[2019-05-01] MEDS ORDERED: NS 500 ML ONE (20:51)
[2019-05-02] MEDS: NORCO-10 PO PRN ×3 (00:44→16:27)
[2019-05-02] MEDS: MEFOXIN 2 GM/NS 2 GM/50 ML IVPB IV SCH ×4 (03:03→21:06)
[2019-05-02] MEDS: DILAUDID IV PRN ×3 (11:53→21:05)
[2019-05-02] MEDS: LOVENOX SUBQ SCH (11:53)
[2019-05-02] MEDS: ZOFRAN IV PRN ×2 (11:54→17:48)
--- NOTE | 2019-05-02 15:43 | GENERAL SURGERY PROGRESS NOTE ---
DATE: 05/02/2019 SUBJECTIVE: She feels well. No fevers. No tachycardia. Abdomen is soft. Incision intact. CINTIA drain is more bilious today. There has been approximately 130 to 150 recorded. ASSESSMENT AND PLAN: A 28-year-old female, bile leak, status post cholecystectomy. I talked to Dr. Kelly. He plans for ERCP tomorrow. As such, we will continue clear liquids and NPO at midnight. She is on prophylactic Lovenox. Pain medicines as needed. cc: MD Carlton Patterson MD
--- NOTE | 2019-05-02 15:46 | GASTROENTEROLOGY CONSULTATION ---
DATE: 05/02/2019 CONSULTING PHYSICIAN: Dr. Henson. REASON FOR CONSULT: Bile leak. HISTORY OF PRESENT ILLNESS: This is a 28-year-old white female who had a laparoscopic cholecystectomy and was admitted to hospital with abdominal pain. She had a diagnostic laparoscopic laparotomy yesterday and was found to have a pocket of bile in the abdomen. She had a drain put in and initially her drain was draining a minimal amount of bile, but today she has a little bit more drainage. She reports her abdominal pain is slightly better. She has not had any nausea or vomiting. Her appetite is good. She has tolerated the meal this morning. She denies any fever or chills. Has not had any headache or dizziness or double vision. Denies any chest pain, shortness of breath. Or palpitations. Denies any cough, sputum, hemoptysis. She has not had any dysuria, polyuria, hematuria. PAST MEDICAL HISTORY: Significant for Darline's thyroiditis. PAST SURGICAL HISTORY: She has had a gastric sleeve surgery and recent cholecystectomy. MEDICATIONS: Prior to hospitalization, she was on Synthroid and was also taking Dexilant, ranitidine, and [place]. ALLERGIES: Claims to be allergic to succinylcholine. SOCIAL HISTORY: She does not use illicit drugs. She works as a laboratory associate. FAMILY HISTORY: Noncontributory. REVIEW OF SYSTEMS: As per HPI as above. PHYSICAL EXAMINATION: General: Very pleasant white female. She is lying in bed. She is conscious, alert, appears to be in no distress. Vital signs: Temperature 98.2 degrees, pulse 73 per minute, breathing 17, blood pressure 99/46. HEENT: Head is atraumatic, normocephalic. Eyes: Conjunctivae normal. Sclerae anicteric. Nares are patent. No discharge. Mouth: Mucous membranes are moist. Throat is normal. Neck: Supple. No lymphadenopathy or thyromegaly. Chest: Clear to auscultate. Heart: S1, S2 audible. No murmur could be appreciated. Abdomen: Full, soft. Postsurgical. Appropriately tender. No rebound tenderness or guarding noted. The CINTIA drain is in place. Has got bile tinged drainage. No other mass [*] noted. Bowel sounds audible. Extremities: No pedal edema, cyanosis, clubbing was noted. CRATE OPENER: Grossly intact. No sensory or motor deficit. LABORATORY DATA: Labs reviewed from 30 of April, essentially negative. Her transaminases, AST was slightly elevated at 34. Otherwise, rest of the lab was normal. IMPRESSION: Bile leak status post laparoscopic cholecystectomy and laparoscopic laparotomy done yesterday. Has a CINTIA drain in place. Condition would improve if ERCP is done and stent is placed at the ampulla. I have explained to her the findings and plan. Explained to her the risks, benefits, alternatives of ERCP. She understands and agrees to proceed. The patient will be scheduled for ERCP as soon as possible for stent placement. cc: MD Carlton Rahman MD
[2019-05-03] MEDS: ZOFRAN IV PRN ×4 (01:12→22:35)
[2019-05-03] MEDS: MEFOXIN 2 GM/NS 2 GM/50 ML IVPB IV SCH ×4 (03:09→22:13)
[2019-05-03] MEDS: NORCO-10 PO PRN ×4 (03:11→23:11)
[2019-05-03] MEDS: DILAUDID IV PRN ×6 (04:46→22:23)
[2019-05-03] MEDS: ATIVAN IV PRN ×2 (05:48→22:13)
[2019-05-03] MEDS: PROTONIX IV SCH (05:49)
--- NOTE | 2019-05-03 06:00 | EKG Report ---
Test Performed on : 05/03/2019 05:54:25 AM Test Reason : chest pain Blood Pressure : / mmHG Vent. Rate : 076 BPM Atrial Rate : 076 BPM P-R Int : 158 ms QRS Dur : 080 ms QT Int : 364 ms P-R-T Axes : 048 048 046 degrees QTc Int : 409 ms Normal sinus rhythm. Normal ECG When compared with ECG of 13-NOV-2018 03:58, Nonspecific T wave abnormality no longer evident in Inferior leads Nonspecific T wave abnormality no longer evident in Anterolateral leads Confirmed by Jj Kuo MD ([id number]) on 05/11/2019 9:29:57 PM
--- NOTE | 2019-05-03 06:30 | GENERAL SURGERY PROGRESS NOTE ---
DATE: 05/03/2019 SUBJECTIVE: The patient is a little bit anxious today. She is complaining of chest pain and some burning sensation. Given the fact she is complaining of chest pain, we will get the standard chest pain workup with chest x-ray, EKG, and cardiac enzymes. At this point, she thinks it is more anxiety related given the fact she has to have another procedure, which is the ERCP schedule for today. We will get some low-dose Ativan IV. I will also put her on Protonix IV. OBJECTIVE: Vital Signs: Patient is currently afebrile. Her vital signs are stable. General: No acute distress but appears anxious. Cardiovascular: Some mild tachycardia. Lungs: Grossly clear. Abdomen: Soft. CINTIA drain in place with minimal yellow-tinged fluid noted. ASSESSMENT AND PLAN: This is a 28-year-old female with a recent cholecystectomy and possible bile leak. 1. Possible bile leak. At this time plan for ERCP. 2. Chest pain. Please see above in subjective. cc: Carlton George MD
--- NOTE | 2019-05-03 07:31 | Diag Imaging Result Doc PS360 ---
CHEST-1 VIEW - 05/03/2019 INDICATION: chest pain COMPARISON: 11/30/2018 FINDINGS: The lungs are normally expanded and clear. Heart size and mediastinal contours are normal. No pneumothorax or pleural effusion. IMPRESSION: Negative exam. Electronically signed by Den Sanches 05/03/2019 7:28 AM
[2019-05-03] MEDS ORDERED: INDOCIN ONE (10:32)
[2019-05-03] MEDS ORDERED: DIPRIVAN 1% ONE ×2 (11:32→12:08)
[2019-05-03] MEDS ORDERED: VERSED ONE (11:34)
[2019-05-03] MEDS ORDERED: FENTANYL ONE (11:54)
--- NOTE | 2019-05-03 12:36 | ENDOSCOPY OPERATIVE NOTE ---
[facility] ENDOSCOPY OPERATIVE NOTE , ERCP PROCEDURE REPORT EXAM DATE: 05/03/2019 PATIENT NAME: Marilu Mandel MR #: [id number] BIRTHDATE: 1990 ATTENDING: Jasson Kelly MD STATUS: inpatient ARTIFICIAL GLASS EYE MAKER: Naye Hodgson and Milagros Palacio INDICATIONS: The patient is a 28 yr old female here for an ERCP due to established bile leak. PROCEDURE PERFORMED: ERCP with stent placement MEDICATIONS: Per Anesthesia CONSENT: The patient understands the risks and benefits of the procedure and understands that these r isks include, but are not limited to: sedation, allergic reaction, infection, perforation and/or bleeding. Alternative means of evaluation and treatment include, among others: physical exam, x-rays, and/or surgical intervention. The patient elects to proceed with this endoscopic procedure. HISTORY AND PHYSICAL: 05/03/2019 DESCRIPTION OF PROCEDURE: During intra-op preparation period all mechanical and medical equipment was checked for proper function. Hand hygiene and appropriate measures for infection prevention was taken. After the risks, benefits and alternatives of the procedure were thoroughly explained, Informed was verified, confirmed and timeout was successfully executed by the treatment team. With the patient in left semi-prone position, medications were admini stered intravenously.The [id number] ([id number]) was passed from the mouth into the esophagus and further advanc ed from the esophagus into the stomach. From stomach scope was directed to the second portion of the duodenum. M ajor papilla was aligned with the duodenoscope. The scope position was confirmed fluoroscopically. Rest of the finding s/therapeutics are given below. The scope was then completely withdrawn from the patient and the procedure completed. Th e pulse, BP, and O2 saturation were monitored and documented by the physician and the nursing staff throughout the ent panchito procedure. The patient was cared for as planned according to standard protocol. The patient was then discharged to [facility] in stable condition and with appropriate post procedure care. ERCP: A xray tech film prior to endoscope insertion appeared normal. Evidence of cholecystectomy and dr azra placement. The Major Papilla was located in the second portion of the duodenum. The major papilla appeared norm al. Bile duct cannulation was attempted using the cannulatome with guidewire. Cannulation of the bile duct was per formed with ease. Deep cannulation was successfully achieved. A cholangiogram releaved there was a bile leak (extrava sation) and extravasation from the right intrahepatic branches. A pancreatogram was performed. The pancreatic duct system appeared normal with no evidence of stricture, dilation, stones or filling defects. Under endoscopi c and fluoroscopic guidance, a 8.5Fr X 5cm plastic stent was placed in the bile duct. ADVERSE EVENT: There were no complications. IMPRESSIONS: 1. Bile leak 2. S/p cholecystectomy 3. Plastic stent placement RECOMMENDATIONS: 1. Advance diet as tolerated 2. Resume current medications 3. Disposition 4. Return to floor when standard parameters are met 5. Follow up with GI physician in 2 week(s) REPEAT EXAM: Return in 6 weeks for ERCP. Jasson Kelly MD eSigned: Jasson Kelly MD 05/03/2019 12:35 PM cc: MD Luciano Ross MD PATIENT NAME: Marilu Mandel MR#: [id number]
--- NOTE | 2019-05-03 12:46 | Diag Imaging Result Doc PS360 ---
ERCP-BILIARY AND PANCREATIC - 05/03/2019 INDICATION: Bile leak TECHNIQUE: The exam was performed by the patient's endoscopist. Total fluoroscopy time was two minutes 40 seconds. Three images were obtained. COMPARISON: CT from 04/30/2019 FINDINGS: Contrast injection demonstrates a normal biliary collecting system with no evidence of biliary dilation. No obvious bile leak. There are cholecystectomy clips. A common bile duct stent was placed in good position. IMPRESSION: No complication. Electronically signed by Den Sanches 05/03/2019 12:44 PM
[2019-05-03] MEDS: LOVENOX SUBQ SCH (13:12)
[2019-05-03] MEDS ORDERED: BENADRYL PO PRN (13:23)
[2019-05-04] MEDS: DILAUDID IV PRN ×9 (00:35→19:15)
[2019-05-04] MEDS: ATIVAN IV PRN ×3 (02:12→21:22)
[2019-05-04] MEDS: ZOFRAN IV PRN ×3 (04:19→21:22)
[2019-05-04] MEDS ORDERED: LR 1,000 ML IV SCH (05:45)
[2019-05-04] MEDS: SYNTHROID PO SCH (07:05)
[2019-05-04] MEDS: PROTONIX IV SCH (07:05)
--- NOTE | 2019-05-04 09:04 | GENERAL SURGERY PROGRESS NOTE ---
DATE: 05/05/2019 SUBJECTIVE: Patient is having increased abdominal pain during the night. We did get an amylase and lipase and they were both over 1999 suggestive of post ERCP pancreatitis. Her ERCP showed what looked like a duct of Luschka leak. Her CINTIA drain has got more drainage but it looks more serosanguineous. OBJECTIVE: Vital Signs: The patient is currently afebrile. Her vital signs are stable. General: No acute distress. Cardiovascular: Some mild tachycardia. Lungs: Grossly clear. Abdomen: Soft. Tender to palpation epigastric. CINTIA drain in place with serosanguineous output. LABORATORY: Amylase 2900, lipase 2600. ASSESSMENT/PLAN: 28-year-old female is status post cholecystectomy with duct of Luschka leak, now with post endoscopic retrograde cholangiopancreatography pancreatitis. 1. Pancreatitis. At this time we will make her NPO, put her on IV fluids. Continue pain management. We will recheck an amylase and lipase in the morning. She is on Mefoxin, which I will stop. 2. Vaginal bleeding. Patient does report some vaginal bleeding. This may be related to just the stress of the surgery and everything she has been through. I did offer to get client care representative involved the patient wants to hold off for right now. We will continue to monitor. cc: Carlton George MD
[2019-05-04] MEDS: LOVENOX SUBQ SCH (12:37)
[2019-05-04] MEDS: NORCO-10 PO PRN ×2 (13:32→20:11)
--- NOTE | 2019-05-04 14:44 | GASTROENTEROLOGY PROGRESS NOTE ---
DATE: 05/04/2019 SUBJECTIVE: Patient was resting after receiving pain medication. She is complaining of abdominal pain. She had an ERCP on 05/03/2019. Indications for bile leak. Stent was placed in the bile duct. Patient reports abdominal pain immediately after the procedure. She had amylase and lipase done this morning that showed amylase 2970, lipase 2631, indicating pancreatitis status post ERCP. The patient is receiving pain medication including Dilaudid and Arion. At the time of my visit, she reported a pain level of a 5. She has been held n.p.o. OBJECTIVE: Vital Signs: Temperature 98.8 degrees, pulse 108, respirations 18, blood pressure 108/61. General: Patient is awake and alert. She is complaining of abdominal pain. She has received pain medication and anti nausea medicine. Abdomen: With laparoscopic dressings intact. CINTIA with a small amount of serosanguineous drainage noted. Abdomen tender with palpation. LABORATORY DATA: Hematology from 04/30/2019, WBC 9.90, hemoglobin 13.3, hematocrit 40.8, MCV 86.4, platelet 266,000. Chemistry: Sodium 138, potassium 4.6, chloride 101, CO2 24, BUN 9, creatinine 0.6. Amylase and lipase today 2970 and 2631. We will repeat labs tomorrow. ASSESSMENT: 1. Recent cholecystectomy with bile leak. 2. Recent endoscopic retrograde cholangiopancreatography with stent placement. 3. Pancreatitis status post endoscopic retrograde cholangiopancreatography. PLAN: Continue n.p.o. and p.r.n. medications for pain and nausea. Repeat her labs tomorrow. Further plans to be made according to her progress. I have discussed this case with Dr. Kelly. Dictated by DOMI Siddiqui for Jasson Kelly MD cc: DOMI Cevallos MD Matthew L. Figh, MD MTDD
[2019-05-04] MEDS: LR 1,000 ML IV SCH ×2 (14:47→16:57)
[2019-05-04 15:22] LABS: AGAP 12; BUN 3 mg/dL (8-22); CALCIUM 8.8 mg/dL (8.8-10.2); CHLORIDE 100 mmol/L (98-107); COSMO 266; CREATININE 0.5 mg/dL (0.5-0.9); ESTIMATED GFR > 60; GLUCOSE 87 mg/dL (70-104); POTASSIUM 3.6 mmol/L (3.5-5.1); SODIUM 135 mmol/L (136-145); TCO2 23 mmol/L (25-35)
[2019-05-05] MEDS: ZOFRAN IV PRN ×3 (02:01→18:30)
[2019-05-05] MEDS: ATIVAN IV PRN (02:02)
[2019-05-05] MEDS: LR 1,000 ML IV SCH ×6 (02:02→23:17)
[2019-05-05] MEDS: DILAUDID IV PRN ×7 (02:02→20:52)
--- NOTE | 2019-05-05 06:00 | GENERAL SURGERY PROGRESS NOTE ---
DATE: 05/05/2019 SUBJECTIVE: Patient says she is still hurting. OBJECTIVE: Vital signs: Patient is currently afebrile. Her vital signs are stable. General: No acute distress, resting. Cardiovascular: Regular rate and rhythm. Lungs: Grossly clear. Abdomen: Soft, tender epigastric area. ASSESSMENT AND PLAN: A 28-year-old female with status post cholecystectomy with bile leak and then with ERCP-associated pancreatitis. 1. Pancreatitis. At this time, we will keep her NPO, keep her on IV fluids. We will recheck her labs this morning. We will continue to monitor. 2. Status post bile leak. At this time, she has had ERCP with stenting. We will keep the Ki-Santos drain in place. 3. Vaginal bleeding still present. The patient says it is getting better. cc: Carlton George MD
[2019-05-05] MEDS: SODIUM CHLORIDE 0.9% INJ SCH (06:42)
[2019-05-05] MEDS: PROTONIX IV SCH (06:42)
[2019-05-05] MEDS: SYNTHROID PO SCH (06:43)
[2019-05-05 08:08] LABS: AGAP 12; ALBUMIN 2.9 g/dL (3.5-5.0); ALKALINE PHOSPHATASE 71 U/L (32-104); BUN 3 mg/dL (8-22); CALCIUM 7.9 mg/dL (8.8-10.2); CHLORIDE 101 mmol/L (98-107); COSMO 269; CREATININE 0.5 mg/dL (0.5-0.9); ESTIMATED GFR > 60; GLUCOSE 75 mg/dL (70-104); GOT 8 U/L (10-30); GPT 12 U/L (10-36); POTASSIUM 3.8 mmol/L (3.5-5.1); SODIUM 137 mmol/L (136-145); TCO2 24 mmol/L (25-35); TOTAL BILIRUBIN 0.38 mg/dL (0.20-1.00); TOTAL PROTEIN 5.7 g/dL (6.3-8.3)
[2019-05-05] MEDS: NORCO-10 PO PRN ×3 (08:09→23:04)
[2019-05-05 08:28] LABS: AMYLASE 1169 U/L (20-200)
[2019-05-05 08:34] LABS: LIPASE 923 U/L (13-60)
--- NOTE | 2019-05-05 11:23 | Diag Imaging Result Doc PS360 ---
CHEST-1 VIEW - 05/05/2019 INDICATION: increased NEWS COMPARISON: 05/03/2019 FINDINGS: Lung volumes are even lower, severely low. There is some nonspecific linear atelectasis in the right lung base. Otherwise no significant infiltrates. Heart size is top normal. IMPRESSION: Lower lung volumes. Microatelectasis in the right lung base. Electronically signed by Den Sanches 05/05/2019 11:21 AM
[2019-05-05] MEDS: LOVENOX SUBQ SCH (14:35)
[2019-05-05 16:35] LABS: INR 1.06; PROTIME 13.9 Seconds (11.0-16.0)
--- NOTE | 2019-05-05 18:29 | GASTROENTEROLOGY PROGRESS NOTE ---
DATE: 05/05/2019 SUBJECTIVE: The patient is awake and alert. She has gotten a shower. She is feeling better today. She is still reporting some abdominal pain but it has improved. She states she has had to have less often pain medication. She has tolerated sips and chips of ice and water. OBJECTIVE: Vital Signs: Temperature 98.1 degrees, pulse 113, respirations 18, blood pressure 90/44. General: The patient was awake and alert, in no acute distress. Abdomen: Tender, but has improved since yesterday. CINTIA drain to right quadrant with a small amount of serosanguineous drainage noted. LABORATORY: Chemistry: Sodium 137, potassium 3.8, chloride 101, CO2 24, BUN 3, creatinine 0.5, glucose 75, calcium 7.9, total bilirubin 0.38, AST 8, ALT 12, alkaline phosphatase 71, amylase 1169, lipase 923. ASSESSMENT: 1. Recent cholecystectomy. 2. Bile leak requiring ERCP and stent placement. 3. Pancreatitis status post ERCP. PLAN: Today patient has improved from yesterday. Amylase and lipase are improving. She has tolerated sips of ice and water. We will try clear liquids to see how she tolerates. Continue p.r.n. medication for pain or nausea. Further plans to be made according to her progress. I have discussed this case with Dr. Kelly. Dictated by DOMI Siddiqui for Jasson Kelly MD cc: DOMI Cevallos MD Matthew L. Figh, MD
[2019-05-06] MEDS: MIRALAX PO SCH ×3 (01:53→20:44)
[2019-05-06] MEDS: DILAUDID IV PRN ×4 (02:59→22:23)
[2019-05-06] MEDS: SYNTHROID PO SCH ×2 (05:56→06:08)
[2019-05-06] MEDS: SODIUM CHLORIDE 0.9% INJ SCH (05:57)
[2019-05-06] MEDS: NORCO-10 PO PRN ×3 (05:57→17:58)
[2019-05-06] MEDS: ZOFRAN IV PRN ×3 (05:57→17:58)
[2019-05-06] MEDS: PROTONIX IV SCH (05:57)
[2019-05-06] MEDS: LR 1,000 ML IV SCH ×3 (06:07→15:32)
--- NOTE | 2019-05-06 06:09 | GENERAL SURGERY PROGRESS NOTE ---
DATE: 05/06/2019 SUBJECTIVE: Patient feels a little bit better, but still some soreness. OBJECTIVE: Vital Signs: Patient is currently afebrile. Her vital signs are stable. General: No acute distress. Cardiovascular: Regular rate and rhythm. Lungs: Grossly clear. Abdomen: Soft. Decreased tenderness. CINTIA drain with serosanguineous output. ASSESSMENT AND PLAN: A 28-year-old female with bile leak, status post laparoscopic cholecystectomy with ERCP induced pancreatitis. 1. Pancreatitis at this time seems to be improving. We will advance her to a full liquid diet and add Ensure's. 2. Bile leak at this time seems to have resolved. We will keep Ki-Santos drain in place. 3. Poor IV selection at this time. I discussed with patient potential PICC, but she wants to hold off. I do believe she might be discharged here in the next couple of days. cc: Carlton George MD
[2019-05-06 08:25] LABS: AGAP 12; ALB/GLOB RATIO 1.1; ALBUMIN 2.7 g/dL (3.5-5.0); ALKALINE PHOSPHATASE 67 U/L (32-104); AMYLASE 219 U/L (20-200); BUN 3 mg/dL (8-22); CALCIUM 8.4 mg/dL (8.8-10.2); CHLORIDE 101 mmol/L (98-107); COSMO 271; CREATININE 0.4 mg/dL (0.5-0.9); ESTIMATED GFR > 60; GLUCOSE 79 mg/dL (70-104); GOT 7 U/L (10-30); GPT 10 U/L (10-36); LIPASE 68 U/L (13-60); SODIUM 138 mmol/L (136-145); TCO2 25 mmol/L (25-35); TOTAL BILIRUBIN 0.35 mg/dL (0.20-1.00); TOTAL PROTEIN 5.2 g/dL (6.3-8.3)
[2019-05-06] MEDS: LOVENOX SUBQ SCH (11:53)
--- NOTE | 2019-05-06 18:41 | GASTROENTEROLOGY PROGRESS NOTE ---
DATE: 05/06/2019 SUBJECTIVE: The patient was resting at the time of my visit. Her was at the bedside. He states her abdominal pain has improved some. She has tolerated a clear liquid diet. OBJECTIVE: Vital Signs: Temperature 98 degrees, pulse 86, respirations 16, blood pressure 87/53. General: Patient was asleep, in no acute distress. LABORATORY: Chemistry: Sodium 138, potassium 4.0, chloride 101, CO2 25, BUN 3, creatinine 0.4, glucose 79, total bilirubin 0.35, AST 7, ALT 10, alkaline phosphatase 67, amylase 219, lipase 68. ASSESSMENT AND PLAN: 1. Status post cholecystectomy. 2. Bile leak status post endoscopic retrograde cholangiopancreatography with stent placement. 3. Pancreatitis status post endoscopic retrograde cholangiopancreatography. Her symptoms are improving. Her amylase and lipase have improved greatly today. I believe her diet will be advanced to a full liquid diet by Dr. George. Continue p.r.n. medications for pain or nausea. The patient will need follow-up with our office to schedule a repeat endoscopic retrograde cholangiopancreatography and stent removal in approximately 4 weeks. I have given our contact information to the . Further plans to be made according to her progress. Hopefully she will be able to be discharged in the next several days. Continue recommendation by Dr. George. The patient was also seen by Dr. Kelly today. Dictated by DOMI Siddiqui for Jasson Kelly MD cc: DOMI Cevallos MD Matthew L. Figh, MD
[2019-05-07] MEDS: NORCO-10 PO PRN ×2 (00:06→09:29)
[2019-05-07] MEDS: ZOFRAN IV PRN (00:06)
[2019-05-07] MEDS: DILAUDID IV PRN ×3 (04:01→11:28)
[2019-05-07] MEDS: PROTONIX IV SCH (05:52)
[2019-05-07] MEDS: SODIUM CHLORIDE 0.9% INJ SCH (05:52)
--- NOTE | 2019-05-07 05:52 | GENERAL SURGERY PROGRESS NOTE ---
DATE: 05/07/2019 SUBJECTIVE: Patient seems to be doing okay. Her pain is improved. She tolerated her diet. She feels like she is ready to go home. OBJECTIVE: Vital Signs: Patient is currently afebrile. Her vital signs stable. General: No acute distress. Cardiovascular: Regular rate and rhythm. Lungs: Grossly clear. Abdomen: Soft and appropriately tender. Decreased tenderness epigastric in the CINTIA drain with serosanguineous output. ASSESSMENT AND PLAN: A 28-year-old female with bile leak, status post laparoscopic cholecystectomy with ERCP, associated pancreatitis. Pancreatitis at this time seems to be resolved. We will advance to a regular diet. If she does okay, we will potentially discharge her home today. cc: Carlton George MD
[2019-05-07] MEDS: SYNTHROID PO SCH (06:45)
[2019-05-07 08:19] LABS: AGAP 14; ALB/GLOB RATIO 1.2; ALBUMIN 2.9 g/dL (3.5-5.0); ALKALINE PHOSPHATASE 75 U/L (32-104); AMYLASE 77 U/L (20-200); BUN 4 mg/dL (8-22); CALCIUM 8.3 mg/dL (8.8-10.2); CHLORIDE 103 mmol/L (98-107); COSMO 273; CREATININE 0.5 mg/dL (0.5-0.9); ESTIMATED GFR > 60; GLUCOSE 79 mg/dL (70-104); GOT 8 U/L (10-30); GPT 9 U/L (10-36); LIPASE 59 U/L (13-60); POTASSIUM 4.1 mmol/L (3.5-5.1); SODIUM 139 mmol/L (136-145); TCO2 22 mmol/L (25-35); TOTAL BILIRUBIN 0.27 mg/dL (0.20-1.00); TOTAL PROTEIN 5.3 g/dL (6.3-8.3)
[2019-05-07] MEDS: MIRALAX PO SCH (09:30)
[2019-05-07 11:07] VITALS: BP 99/53
--- NOTE | 2019-05-07 15:34 | GASTROENTEROLOGY PROGRESS NOTE ---
DATE: 05/07/2019 SUBJECTIVE: Patient was sitting up in the bed in no acute distress. She is dressed. She states she feels better. She was able to tolerate some of her regular diet breakfast this morning. She did not eat much of it because she states the biscuit was burnt and the eggs were dry, but she did eat some of her grits without difficulty. Her amylase and lipase have gone back to normal. She only reports some mild abdominal tenderness. OBJECTIVE: Vital Signs: Temperature 98 degrees, pulse 82, respirations 20, blood pressure 99/53. General: Patient is awake and alert. No acute distress. LABORATORY: Chemistry: Sodium 139, potassium 4.1, chloride 103, CO2 of 22, BUN 4, creatinine 0.5, glucose 79, total bilirubin 0.27, AST 8, ALT 9, alkaline phosphatase 75, amylase 77, lipase 59. ASSESSMENT AND PLAN: 1. Status post cholecystectomy. 2. Bile leak status post cholecystectomy with ERCP and stent placement done. 3. Pancreatitis status post ERCP. 4. Abdominal pain improved. PLAN: Patient has improvement in her abdominal pain. She has been able to tolerate a regular diet this morning for breakfast. Amylase and lipase are back to normal. Once Dr. George feels she is able to go home she can follow up with us in the office after discharge in approximately 3 weeks. We will plan to remove her stent in approximately 4 weeks. I have given patient contact information to call and make an appointment. Further plans to be made according to her progress. I have discussed this case with Dr. Kelly. Dictated by DOMI Siddiqui for Jasson Kelly MD cc: DOMI Cevallos MD Matthew L. Figh, MD
--- NOTE | 2019-05-09 11:16 | PROVIDER DOCUMENTATION ---
This chart was entered by Becca Sue Scribe, acting as scribe for Alvarez Hermosillo MD. HPI-Abdominal Pain/GI Problem - General Chief Complaint: Abdominal Pain Stated Complaint: RETURN/RECHECK ABDOMINAL PAIN Time Seen by Provider: 04/30/19 10:47 Source: patient, family () Allergies/Adverse Reactions: Patient Allergies Allergy/AdvReac Type Severity Reaction Status Date / Time succinylcholine Allergy Severe coma Verified 04/30/19 11:06 [Succinylcholine] Home Medications: Home Medication List Medication Instructions Recorded Confirmed Last Taken Type Levothyroxine Sodium [Synthroid] 75 mcg PO DAILY@0700 11/13/18 04/30/19 04/29/19 History Dexlansoprazole [Dexilant] 1 cap PO DAILY 04/30/19 04/30/19 04/29/19 History Ranitidine HCl 1 tab PO DAILY 04/30/19 04/30/19 04/29/19 History Hydrocodone/APAP 10 mg/325 mg 1 ea PO Q6H PRN PRN #30 tab 05/07/19 Unknown Rx [[place]-10] Ondansetron HCl [Zofran] 4 mg PO Q6H PRN #20 tab 05/07/19 Unknown Rx - History of Present Illness-ABD Nature of Presenting Problems: pt was seen in ed last night for same pain and has CT done and dx was as follow: - CT/MRI 1 CT Study: Abdomen, Pelvis CT Results: fecal retention pt sts she went home and when the ativan and pain medication wore off the pain returned worse. pt called dr mike ELY office and was told to come to ed. pt on exam is tearful and gaurding of mid abdomen. pt had her gallbladder removed 04/24/19. pt sts at midnight she rolled over in the bed and felt a pop and pain has been 10/10 Abdominal Pain Onset Location: reports: periumbilical Pain Radiation: reports: no radiation Quality of Pain: reports: aching, cramping Severity in ED: reports: severe Onset/Duration: reports: last night Timing: reports: still present, intermittent, getting worse Activities at Onset: reports: light activity Exposure to sick contacts?: No Modifying Factors: improves with: nothing. worse with: movement, palpation Associated Symptoms: reports: constipation. denies: back/neck pain, fever/chills, nausea, shortness of breath, vomiting Last BM: last night Dark Stools Present?: reports: none noticed Rectal Bleeding: reports: none # of Diarrhea Episodes: 0 Rectal Pain: reports: none # of Vomiting Episodes: 0 Emesis Description: reports: none Bruising or Bleeding Gums?: No Similar Symptoms Previously?: Yes (abd pain seen in ed last night) Recently seen or treated by another doctor?: Yes (dr johnson done gallbladder sx 04/24/19) Review of Systems - Adult - REVIEW OF SYSTEMS - ADULT Constitutional: denies: chills, fever Eyes: reports: no symptoms reported Ears, Nose, Mouth & Throat: reports: no symptoms reported Cardiovascular: denies: chest pain, palpitations, syncope Respiratory: reports: no symptoms reported Gastrointestinal: reports: see HPI, abdominal pain. denies: diarrhea, nausea, vomiting Genitourinary: reports: no symptoms reported Musculoskeletal: denies: back pain, neck pain Integumentary: reports: no symptoms reported Neurological: denies: dizziness/vertigo, headache/migraines Psychiatric: reports: no symptoms reported Endocrine: reports: no symptoms reported Hematologic/Lymphatic: reports: no symptoms reported Allergic/Immunologic: reports: no symptoms reported All Other Systems: Reviewed and Negative Past History - Adult - PAST MEDICAL HISTORY-ADULT Review of Records: reports: Old Records Reviewed, Nursing Assessment Review, Medications Reviewed, Social history reviewed & non-contributory. Major Childhood Illnesses: reports: denies history Cardiovascular: reports: denies history Respiratory: reports: denies history Gastrointestinal: reports: denies history Obstetrical/Gynecological: reports: denies history Genitourinary: reports: denies history Musculoskeletal: reports: denies history Neurological: reports: denies history Endocrine/Immune: reports: denies history Other Conditions: reports: denies history - PRIOR SURGERIES/PROCEDURES Surgical/Procedure History: reports: recent surgery, cholecystectomy, tonsillectomy - PRIOR HOSPITALIZATIONS Prior Hospitalizations: reports: for other non-related - IMMUNIZATION STATUS Childhood Immunizations: UTD Flu Vaccine: See Nurse Assessment - FAMILY HISTORY Family History: reviewed, not pertinent - SOCIAL HISTORY Smoking: quit greater than 1 year Substance Use: alcohol Alcohol Use Frequency: occasionally Living Situation: family Physical Exam-General - PHYSICAL EXAM-ADULT Initial Vital Signs Reviewed: Yes - CONSTITUTIONAL General Appearance: alert, mild distress, obese - EYES Eyes: PERRL/EOMI, pink conjunctivae - HEAD, EARS, NOSE, MOUTH & THROAT HENMT: moist mucous membranes - NECK Neck: non-tender, full range of motion, supple, normal inspection - RESPIRATORY Respiratory: chest non-tender, lungs clear, normal breath sounds - CARDIOVASCULAR Cardiovascular: normal peripheral pulses, tachycardia (133) - CHEST (BREASTS) Chest/Breast: deferred - GASTROINTESTINAL (ABDOMEN) Abdominal Exam: soft, guarding, tenderness (diffuse), other (well healing scars from recent sx) - LYMPHATIC Lymphatic: no adenopathy - MUSCULOSKELETAL Back Exam: no CVA tenderness, no vertebral tenderness Extremity: normal range of motion, non-tender, normal gait, normal inspection - SKIN Integumentary: normal color, normal turgor, warm/dry - NEUROLOGIC Neurologic: grossly normal - PSYCHIATRIC Psych/Mental Status: normal mood/affect, normal thought content, normal thought process, oriented x 3, tearful Progress - PLAN OF CARE/RESULTS Progress/Plan/Lab Results: Vital Signs - 8 hr 04/30/19 10:37 Temperature 98.3 F Pulse Rate 133 H Respiratory Rate 20 Blood Pressure 105/66 O2 Sat by Pulse Oximetry 96 Orders Category Date Time Status BLOOD CULTURE [BLDCUL] Stat Lab 04/30/19 10:48 Uncollected CBC WITH DIFF [HEME] Stat Lab 04/30/19 10:48 Ordered COMPREHENSIVE METABOLIC PANEL [CHEM] Stat Lab 04/30/19 10:48 Uncollected LACTATE, PLASMA [CHEM] Stat Lab 04/30/19 10:48 Uncollected LIPASE [CHEM] Stat Lab 04/30/19 10:48 Uncollected URINALYSIS W/POSS RFLX CULT [URINALYSIS] Stat Lab 04/30/19 10:48 Uncollected 0.9% Sodium Chloride Inj [Ns] 1,000 ml Med 04/30/19 10:49 Active IV 999 mls/hr Result Diagrams: 04/30/19 11:40 05/07/19 07:02 - REASSESSMENT Reassessment #1 Time Reassessed: 12:30 Status: unchanged (pt is lying in bed) - CONSULTS/PCP/HOSPITALIST Notification #1 *Consult/PCP/Hospitalist*: dr alex ely Time Discussed: 12:26 Reason/Comments: phone consult Consult Disposition: Admit Departure - Departure Date of Disposition Decision: 04/30/19 Time of Disposition Decision: 13:00 DIAGNOSIS: Postoperative abdominal pain Disposition: ADMITTED INPATIENT 09 Certified Medical Emergency: Emergent Condition: Stable - Critical Care Note This patient required my direct & personal management of CC.: No Attestation - Physician/ TORRES Attestation Patient care was provided by Advanced Practice Provider:: No The physician spent face to face time with patient:: Yes Advanced Practice Provider documentation review:: Supervising physician onsite and consulted in the evaluation and care of this patient. The physician did have a face to face encounter with the patient. This chart was documented by the indicated scribe, (Becca Sue Scribe) and accurately reflects the services I performed and decisions made by me, Alvarez Hermosillo MD, as attested by the provider's signature.
--- NOTE | 2019-05-11 19:28 | DISCHARGE SUMMARY ---
ADMISSION DATE: 04/30/2019 DISCHARGE DATE: 05/07/2019 ADMITTING DIAGNOSES: Bile leak, status post laparoscopic cholecystectomy. DISCHARGE DIAGNOSES: 1. Status post abdominal washout. 2. Status post ERCP. 3. Status post resolution of bile leak. 4. Status post resolution of ERCP-induced pancreatitis. ADMITTING PHYSICIAN: Dr. Carlton George CONSULTATIONS: Dr. Kelly with Gastroenterology. PROCEDURES: 1. 04/30/2019, patient underwent laparoscopic washout. 2. 05/03/2019, patient underwent ERCP. BRIEF HISTORY/COURSE OF STAY: The patient is a 28-year-old female who a week prior to admission had an uneventful laparoscopic cholecystectomy. She presented with abdominal pain so that she might have a bile leak given her CT scan and labs were not that impressive. We admitted her to the operating room and did diagnostic laparoscopy, which she had a little bit of bile in her abdomen. She was washed out, had a drain placed. She continued to have a little bit of bile come out. GI was consulted and she underwent ERCP. It was found that she had a duct of Luschka leak which was resolved with stent placement. She did unfortunately develop in ERCP-induced pancreatitis which took her several days to get over. On the day of discharge, her pancreatitis had resolved. She was tolerating a regular diet. Her pain was controlled. Her CINTIA drain had serosanguineous output and it was felt that she would be safe to be discharged home. All arrangements were made. DISCHARGE CONDITION: Stable. DISPOSITION: Home. DISCHARGE INSTRUCTIONS: Patient was given instructions on how to take care of her CINTIA drain. MEDICATIONS: Patient was given pain medicine. FOLLOW-UP INSTRUCTIONS: Patient told to follow up Dr. Kelly and Dr. George. cc: Carlton George MD
== END 2019-05-07 14:52 | disposition home or self-care (01) | DRG 393 ==
LOC: EDIPHOLD 10:33 → ED 10:33 → OBSVTOIN 13:07 → 4N 13:48
PROVIDERS: ADMIT Surgery; ATTEND Surgery
PROC: EN.ERCP (2019-05-03 11:45)